=== PATIENT | male | born 1940 | race Caucasian/White ===

== ENCOUNTER 2019-04-15 13:51 | Inpatient (IN) | payer MEDICARE ==
[2019-04-15] MEDS ORDERED: 0.9 % SODIUM CHLORIDE 1000ML 1,000 ML IV ONE (14:21)
[2019-04-15 14:26] LABS: ABSOLUTE NEUTROPHIL COUNT 4.14; BASO % 0.6 % (0-6); EOS % 2.6 % (0-6); GRAN % 76.4 % (47-80); HEMATOCRIT 38.1 % (42.0-52.0); HEMOGLOBIN 11.8 gm/dl (14.0-18.0); LYMPH % 12.7 % (16-45); MEAN CELL VOLUME 94.3 fl (81-97); MEAN CORPUSCULAR HEMOGLOBIN 29.2 pg (27-33); MEAN PLATELET VOLUME 10.1 fl (7.4-10.4); MONO % 7.7 % (0-9); PLATELET COUNT 197 K/uL (130-400); RED BLOOD COUNT 4.04 M/uL (4.40-5.70); WHITE BLOOD COUNT W/O DIFF 5.4 K/uL (4.2-12.2)
--- NOTE | 2019-04-15 14:26 | Emergency Department Record ---
History of Present Illness - General Chief complaint: Swelling of legs Stated complaint: LEG SWELLING/UNEXPLAINED WEIGHT LOSS Time Seen by Provider: 04/15/19 13:54 Source: Patient, Family Mode of Arrival: Wheelchair Limitations: No limitations - History of Present Illness Initial comments: 78 yo male presents with his family. The patient and family report that the patient has not been seen by a doctor for nearly three years. The concerns include some general weakness, possible weight loss (not been weighed at home), leg swelling, leg redness bilaterally. He is currently not on any medications. He reports AMI with stent about 2012. No headaches. No confusion. No syncope. No cough. No chest pain. He states activity does make him short of breath gradually over a very long period. He states his appetite is good. No abdominal pain. No diarrhea. No dysuria. Last PCP was Dr Nguyen in [place]. The legs have been swollen for many weeks. MD Complaint: Extremity swelling (redness) Onset/Timin -: Year(s) Location: Bilateral, Lower Leg Radiation: Other Quality: Other Improves with: Nothing Worsens with: Nothing Associated Symptoms: Other - Related Data Home Medications Medication Instructions Recorded Confirmed Last Taken No Home Med [NO HOME MEDS] 04/15/19 04/15/19 Unknown Allergies Allergy/AdvReac Type Severity Reaction Status Date / Time No Known Drug Allergies Allergy Verified 04/15/19 16:49 Travel Screening - Travel/Exposure Within Last 30 Days Have you traveled within the last 30 days?: No - Travel/Exposure Within Last Year Have you traveled outside the [place] in the last year?: No - Additonal Travel Details Have you been exposed to anyone with a communicable illness?: No - Travel Symptoms Symptom Screening: None Review of Systems Constitutional: Reports: Malaise, Weakness. Denies: Chills, Fever Eyes: Denies: Eye discharge, Vision change ENT: Denies: Congestion, Throat pain Respiratory: Denies: Cough, Wheezes Cardiovascular: Reports: Edema. Denies: Chest pain, Palpitations, Syncope Endocrine: Reports: Fatigue. Denies: Polydipsia, Polyuria Gastrointestinal: Denies: Abdominal pain, Constipation, Diarrhea, Nausea, Vom iting Genitourinary: Denies: Dysuria, Frequency, Hematuria Musculoskeletal: Denies: Arthralgia, Back pain, Myalgia Skin: Reports: Other (leg erythema). Denies: Bruising, Change in color Neurological: Reports: Weakness. Denies: Confusion, Headache, Numbness, Tingling Psychiatric: Denies: Anxiety Hematological/Lymphatic: Denies: Easy bleeding, Easy bruising Past Medical History - SOCIAL HISTORY Smoking Status: Never smoker Alcohol Use: None Drug Use: None - RESPIRATORY Hx Respiratory Disorders: No - CARDIOVASCULAR Hx Cardio Disorders: Yes Hx Heart Attack: Yes (2016) - NEURO Hx Neuro Disorders: No - GI Hx GI Disorders: No - Hx Genitourinary Disorders: No - ENDOCRINE Hx Endocrine Disorders: No - MUSCULOSKELETAL Hx Musculoskeletal Disorders: Yes Hx Arthritis: Yes - PSYCH Hx Psych Problems: No - HEMATOLOGY/ONCOLOGY Hx Hematology/Oncology Disorders: No Family Medical History Any Significant Family History?: No Physical Exam - General General Appearance: Alert, Oriented x3, Cooperative, No acute distress Limitations: No limitations - Head Head exam: Atraumatic, Normocephalic, Normal inspection - Eye Eye exam: Normal appearance, PERRL. negative: Conjunctival injection, Periorbital swelling, Scleral icterus - ENT ENT exam: Normal exam, Mucous membranes moist, Normal orophraynx Ear exam: Normal external inspection Nasal Exam: Normal inspection Mouth exam: Normal external inspection - Neck Neck exam: Normal inspection, Full ROM. negative: Tenderness - Respiratory Respiratory exam: Normal lung sounds bilaterally. negative: Accessory muscle use, Chest wall tenderness, Decreased breath sounds, Prolonged expiratory, Respiratory distress, Rhonchi, Stridor, Wheezes - Cardiovascular Cardiovascular Exam: Regular rate, Normal rhythm, Normal heart sounds. negative: Diastolic murmur, Systolic murmur Peripheral Pulses: 2+: Radial (R), Radial (L) - GI/Abdominal GI/Abdominal exam: Soft. negative: Distended, Guarding, Tenderness - Rectal Rectal exam: Deferred - exam: Deferred - Extremities Extremities exam: Full ROM, Normal capillary refill, Pedal edema. negative: Normal inspection, Calf tenderness, Tenderness Image of Full Body: 1 - bilateral edema, with erythema 2 - pressure sore like raw supericial skin breakdown - Back Back exam: Denies: CVA tenderness (R), CVA tenderness (L) - Neurological Neurological exam: Alert, Oriented X3 - Psychiatric Psychiatric exam: Normal affect, Normal mood - Skin Skin exam: Erythema Course Vital Signs 04/15/19 13:57 Temperature 97.6 F Pulse Rate 89 Respiratory 20 Rate Blood Pressure 176/92 Pulse Ox 97 - Reevaluation(s) Reevaluation #1: 04/15/19 14:45 EKG #1: 12:25 Rate: 75 Rhythm: sinus [place]: normal Intervals: normal ST segments: nonspecific J pint elevation, no reciprocal changes or ST depression Prior: None 04/15/19 15:01 The labs results were reviewed There are no acute significant abnormalities of the CBC. Mild anemia of 11.1 There are no acute significant abnormalities of the CMP 04/15/19 17:08 The case was discussed with Sin Agudelo [employer] for admission for UTI, deconditioning, cellulitis with pressure sore. Social Work consulted, PT consulted Medical Decision Making - Lab Data Result diagrams: 04/15/19 14:22 04/15/19 14:22 Disposition Disposition: Admit Clinical Impression: Cellulitis Qualifiers: Site of cellulitis: extremity Site of cellulitis of extremity: lower extremity Laterality: unspecified laterality Qualified Code(s): L03.119 - Cellulitis of unspecified part of limb Urinary tract infection Qualifiers: Indwelling urinary catheter type: unspecified Encounter type: initial encounter Pressure sore Qualifiers: Pressure injury location: calf Pressure injury stage: unspecified pressure injury stage Laterality: right Qualified Code(s): L89.899 - Pressure ulcer of other site, unspecified stage Disposition: Still a Patient at [facility] Decision to Admit: Admit from ER Decision to Admit Date: 04/15/19 Decision to Admit Time: 15:01 Condition: (2) Stable Time of Disposition: 15:01 Quality - Quality Measures Quality Measures: N/A - Blood Pressure Screening Does Patient Have Any of the Following: Active Dx of HTN Blood Pressure Classification: Hypertensive Reading Systolic Measurement: 176 Diastolic Measurement: 92 Screening for High Blood Pressure: Patient Exclusion, Hx of HTN [[id number]] Pre-Hypertensive Follow-up Interventions: Referral to alternative/primary care provider.
[2019-04-15 14:39] LABS: BLOOD UREA NITROGEN 19 mg/dL (8-23); CREATININE 0.9 mg/dL (0.7-1.2); EST GLOMERULAR FILTRATION RATE > 60 mL/min; INR 1.1; PARTIAL THROMBOPLASTIN TIME 27.6 SECONDS (24.5-39.1); PROTHROMBIN TIME (PATIENT) 10.9 SECONDS (9.5-12.1)
[2019-04-15 14:40] LABS: TOTAL PROTEIN 6.7 g/dL (6.6-8.7)
[2019-04-15 14:42] LABS: GLUCOSE,RANDOM 109 mg/dL (74-109)
[2019-04-15 14:45] LABS: ALB/GLOB RATIO 1.1 (1.1-1.8); ALBUMIN 3.5 g/dL (4.0-5.0); ALKALINE PHOSPHATASE 90 U/L (40-129); ALT/SGPT 8 U/L (<41); AST/SGOT 15 U/L (10.0-50.0)
[2019-04-15 14:55] LABS: THYROID STIMULATING HORMONE 1.29 uIU/mL (0.270-4.20)
[2019-04-15] MEDS ORDERED: CLINDAMYCIN 600MG/50ML PREMIX 600 MG/50 ML BAG IVPB ONE (15:06)
[2019-04-15 15:19] LABS: URINE BILIRUBIN NEGATIVE (NEGATIVE); URINE BLOOD TRACE-I (NEGATIVE); URINE COLOR YELLOW; URINE GLUCOSE (UA) NEGATIVE (NEGATIVE); URINE KETONE NEGATIVE (NEGATIVE); URINE LEUKOCYTE ESTERASE LARGE (NEGATIVE); URINE NITRITE POSITIVE (NEGATIVE); URINE PROTEIN NEGATIVE (NEGATIVE); URINE UROBILINOGEN 0.2 E.U./dL (0.20 - 1.00)
[2019-04-15 15:20] LABS: URINE APPEARANCE CLOUDY
[2019-04-15 15:24] LABS: URINE EPITHELIAL CELLS 0 - 2 (FEW); URINE WBC 36 - 50 (0-2/hpf)
[2019-04-15 15:25] LABS: URINE BACTERIA 1+
[2019-04-15] MEDS ORDERED: SILVER SULFADIAZINE 25 GM CREAM TOP ONE (16:13)
[2019-04-15] MEDS ORDERED: ACETAMINOPHEN 325 MG TAB PO PRN (17:59)
[2019-04-15] MEDS ORDERED: CEFTRIAXONE 1GM/50ML BAG 1 GM/50 ML BAG IVPB SCH (18:00)
[2019-04-15] MEDS: CLINDAMYCIN 600MG/50ML PREMIX 600 MG/50 ML BAG IVPB SCH (18:10)
[2019-04-15] MEDS ORDERED: MORPHINE SULFATE 10MG/1ML **1ML VIAL IVP PRN (21:22)
[2019-04-15] MEDS ORDERED: METOPROLOL TART 5 MG/5 ML VIAL IV ONE (21:30)
[2019-04-15] MEDS ORDERED: HYDRALAZINE 20MG/ML VIAL IV PRN (21:31)
[2019-04-15] MEDS: ACETAMINOPHEN 500 MG TABLET PO SCH (23:44)
[2019-04-16] MEDS: KETOROLAC 30 MG/ML VIAL IVP PRN ×2 (00:48→17:21)
[2019-04-16] MEDS: CLINDAMYCIN 600MG/50ML PREMIX 600 MG/50 ML BAG IVPB SCH ×3 (00:59→18:23)
--- NOTE | 2019-04-16 07:19 | RADIOLOGY REPORT ---
EXAM: CHEST, TWO VIEWS HISTORY: SHORTNESS OF BREATH. TECHNIQUE: AP sitting and lateral views of the chest were obtained. Comparison: None. FINDINGS: Mild cardiomegaly. Thoracic dextroscoliosis. The lungs appear somewhat hyperinflated suggesting underlying COPD. No definite acute infiltrate is seen and no pleural effusion or pneumothorax evident. Probable nipple shadow overlying the left base on the AP view at the level of the anterior end of the left fifth rib. This could be confirmed with follow-up PA and bilateral oblique views with nipple markers applied if clinically desired. Degenerative arthritis both shoulders. IMPRESSION: 1. HYPERINFLATION CONSISTENT WITH COPD. 2. THORACIC DEXTROSCOLIOSIS AND DEGENERATIVE CHANGES IN THE SPINE. 3. PROBABLE NIPPLE SHADOW LEFT BASE. NO DEFINITE ACUTE INFILTRATE SEEN. 4. MILD CARDIOMEGALY. JOB NUMBER: [id number] [facility]
[2019-04-16] MEDS ORDERED: FUROSEMIDE 20 MG TABLET PO SCH (10:00)
[2019-04-16] MEDS: ACETAMINOPHEN 500 MG TABLET PO SCH ×3 (11:26→23:03)
--- NOTE | 2019-04-16 11:26 | History & Physical ---
History of Present Illness - Date of Service Date of Service for History & Physical: 04/16/19 - History of Present Illness Admitting Diagnosis: cellulitis, CHF, deconditioned History of Present Illness: Gaetano Castillo is a 78 y.o. M who was brought to the [facility] ED on 04/15/19 by his family d/t generalized weakness, questionable weight loss, leg swelling, leg redness bilaterally. Pt and family reported that he has not seen a PCP in approximately 3 years. Does report a hx of NE with stent placement in 2016 and "mini-strokes" where he states he was treated for both conditions at [facility]. Reports that he was prescribed medications after the heart attack but stopped taking them shortly thereafter because "just taking a couple aspirin was doing the trick". Reports that he isn't taking ASA any longer, or any other medications at this time. In the ED, he denied, headaches, confusion, syncope, cough, CP, abdominal pain, diarrhea or dysuria. Did admit to some increased SOB with activity that has worsened over time. He was noted to be A&Ox3 with no confusion. Last PCP was Dr. Nguyen in [place], who has now retired. ED Course -Vitals: T97.8, HR 103, BP 153/108, RR 16, SpO2 95% on RA -EKG: NSR with questionable RVH -WBC 5.4, Hgb 11.8, BNP 874, creatinine 0.9 -CXR: Hyperinflation, mild cardiomegaly -U/A: +Nitrites and Leuks, C&S pending After arrival to the inpatient unit, pt was noted to be quite unkempt and visibly dirty. He c/o pain 10/10 to legs and BP elevated to 214/108 with HR 141. Was given Morphine 2mg x 1 and Metoprolol 5mg IV x 1 with + effect in both pain and BP/HR control. At that time, scheduled Acetaminophen was ordered as was Toradol 15mg q. 12 hours PRN. This morning, staff reported that pt was confused, with concerns about family environment and living situation. 04/16/19 1030 Vitals: T 97.9, HR 73, BP 120/69, RR 18, SpO2 Pt lying in bed, with HOB elevated. Nurse at bedside. Alert and oriented to name, time, place and was able to report who the President was. He was able to recall the procedures and treatment for his NE in 2016. He reported that he lives at home with his daughter and (who is on hospice), however Case Management later discussed with his family that he lives in a home with 5 other people in addition to and daughter. He was grabbing and clothes periodicall y and said "I need to lay down" when he was already lying in bed. Was found to be tremorous, which pt reported was normal for him but that it seemed to be worse at the time. Was also noted to have bilateral masses in the groin area which appear to be inguinal hernias for which pt denied pain and s tated that they had been present for quite some time. Was also found to have mottled knees, that were warm to touch and mottled/cyanotic bilateral fingers that were cold to the touch with reports of numbness. Pt reported that these s/sx have been "coming and going" for nearly a year. Capillary refill quick, mold filler plastic dolls strength WNL, no sensory deficit. He denied having any CP or SOB. C/o right hip pain 02/10. Denied any trauma such as a fall. Travel Screening - Travel/Exposure Within Last 30 Days Have you traveled within the last 30 days?: No - Travel/Exposure Within Last Year Have you traveled outside the [place] in the last year?: No - Additonal Travel Details Have you been exposed to anyone with a communicable illness?: No - Travel Symptoms Symptom Screening: None Review of Systems Reviewed: No additional complaints except as noted below Constitutional: Reports: Malaise, Weakness, Weight change. Denies: Chills, Fever Eyes: Denies: Vision change ENT: Denies: Congestion, Throat pain Respiratory: Denies: Cough, Wheezes Cardiovascular: Reports: Dyspnea on exertion, Edema. Denies: Chest pain, Palpitations, Syncope Endocrine: Reports: Fatigue Gastrointestinal: Denies: Abdominal pain, Constipation, Diarrhea, Nausea, Vomiting Genitourinary: Denies: Dysuria, Frequency, Testicular pain Musculoskeletal: Reports: Arthralgia. Denies: Back pain, Myalgia Skin: Reports: Other (leg erythema). Denies: Bruising Neurological: Reports: Numbness (in fingers occasionally), Weakness. Denies: Confusion, Headache, Tingling Psychiatric: Denies: Anxiety Hematological/Lymphatic: Denies: Easy bleeding, Easy bruising Past Medical History - SOCIAL HISTORY Smoking Status: Never smoker Alcohol Use: None Drug Use: None - RESPIRATORY Hx Respiratory Disorders: No - CARDIOVASCULAR Hx Cardio Disorders: Yes Hx Heart Attack: Yes (2016) - NEURO Hx Neuro Disorders: No - GI Hx GI Disorders: No - Hx Genitourinary Disorders: No - ENDOCRINE Hx Endocrine Disorders: No - MUSCULOSKELETAL Hx Musculoskeletal Disorders: Yes Hx Arthritis: Yes - PSYCH Hx Psych Problems: No - HEMATOLOGY/ONCOLOGY Hx Hematology/Oncology Disorders: No Family Medical History Any Significant Family History?: No H&P Meds/Allergies - Allergies Allergies: Allergies Allergy/AdvReac Type Severity Reaction Status Date / Time No Known Drug Allergies Allergy Verified 04/15/19 16:49 - Home Medications Home Medications Medication Instructions Recorded Confirmed Last Taken No Home Med [NO HOME MEDS] 04/15/19 04/15/19 Unknown - Active Medications Active Medications: Current Medications Acetaminophen (Tylenol 500mg Tab) 1,000 mg PO TID [facility] Last Admin: 04/15/19 23:44 Dose: Not Given Documented by: Enoxaparin Sodium (Lovenox) 40 mg SC DAILY [facility] Furosemide (Lasix) 20 mg PO DAILY [facility] Hydralazine HCl (Apresoline) 5 mg IV Q2H PRN PRN Reason: BLOOD PRESSURE Clindamycin Phosphate (Cleocin 600 [id number]) 600 mg in 50 mls @ 100 mls/hr IVPB Q8H [facility] Last Infusion: 04/16/19 01:30 Dose: Infused Documented by: Ketorolac Tromethamine (Toradol) 15 mg IVP Q12H PRN PRN Reason: PAIN - MOD TO SEVERE (5-10) Last Admin: 04/16/19 00:48 Dose: 15 mg Documented by: Lisinopril (Zestril) 5 mg PO DAILY [facility] Morphine Sulfate (Morphine Sulfate) 2 mg IVP Q6H PRN PRN Reason: PAIN - SEVERE (8-10) Last Admin: 04/15/19 21:36 Dose: 2 mg Documented by: Physical Exam - Vital Signs Vital Signs: Vital Signs - Last 24 Hrs Temp Pulse Pulse Resp BP BP Pulse Ox 04/16/19 06:00 97.9 F 73 18 120/69 95 04/15/19 23:52 99.1 F 96 H 20 117/66 96 04/15/19 22:15 123 H 20 155/79 97 04/15/19 22:00 122 H 20 177/88 97 04/15/19 21:00 98.2 F 141 H 20 214/108 98 04/15/19 19:12 18 04/15/19 17:59 97.8 F 103 H 16 153/108 95 04/15/19 16:12 82 16 154/101 94 L 04/15/19 15:35 94 L 04/15/19 15:27 20 148/96 04/15/19 13:57 97.6 F 89 20 176/92 97 - General General Appearance: Alert, Oriented x3, Cooperative, No acute distress Limitations: No limitations, Other - Head Head exam: Atraumatic, Normocephalic, Normal inspection - Eye Eye exam: Normal appearance, PERRL. negative: Conjunctival injection, Periorbital swelling, Scleral icterus - ENT ENT exam: Normal exam, Mucous membranes moist, Normal orophraynx, Other (slight left sided facial droop) Ear exam: Normal external inspection Nasal Exam: Normal inspection Mouth exam: Normal external inspection - Neck Neck exam: Normal inspection, Full ROM. negative: Tenderness - Respiratory Respiratory exam: Normal lung sounds bilaterally. negative: Accessory muscle use, Chest wall tenderness, Decreased breath sounds, Prolonged expiratory, Respiratory distress, Rhonchi, Stridor, Wheezes - Cardiovascular Cardiovascular Exam: Regular rate, Normal rhythm, Normal heart sounds. negative: Diastolic murmur, Systolic murmur Peripheral Pulses: 2+: Radial (R), Radial (L) - GI/Abdominal GI/Abdominal exam: Soft, Hernia (bilateral inquinal ). negative: Distended, Guarding, Tenderness - Rectal Rectal exam: Deferred - exam: Deferred - Extremities Extremities exam: Full ROM, Normal capillary refill, Pedal edema, Other (cyanotic/mottled bilateral fingers). negative: Normal inspection, Calf tenderness, Tenderness - Back Back exam: Denies: CVA tenderness (R), CVA tenderness (L) - Neurological Neurological exam: Alert, Oriented X3 - Psychiatric Psychiatric exam: Normal affect, Normal mood - Skin Skin exam: Erythema (yellow, scaly areas with serosanquineous drainage to BLE) Results - Labs Result Diagrams: 04/16/19 13:08 04/16/19 13:08 Labs Last 24 Hours: Laboratory Results - last 24 hr 04/15/19 04/15/19 04/15/19 14:22 14:22 14:22 WBC 5.4 RBC 4.04 L Hgb 11.8 L Hct 38.1 L MCV 94.3 MCH 29.2 MCHC 31.0 L RDW 15.0 H Plt Count 197 MPV 10.1 Gran % 76.4 Lymphocytes % 12.7 L Monocytes % 7.7 Eosinophils % 2.6 Basophils % 0.6 Absolute Neutrophils 4.14 PT 10.9 INR 1.1 APTT 27.6 Sodium 140 Potassium 4.3 Chloride 104 Carbon Dioxide 26.0 Anion Gap 10.0 BUN 19 Creatinine 0.9 Estimated GFR > 60 Random Glucose 109 Calcium 8.7 L Total Bilirubin 0.20 AST 15 ALT 8 Alkaline Phosphatase 90 Troponin T < 0.010 NT-Pro-B Natriuret Pep 874.60 H Total Protein 6.7 Albumin 3.5 L Globulin 3.2 Albumin/Globulin Ratio 1.1 TSH 1.29 Urine Color Urine Appearance Urine pH Ur Specific [place] Urine Protein Urine Glucose (UA) Urine Ketones Urine Blood Urine Nitrite Urine Bilirubin Urine Urobilinogen Ur Leukocyte Esterase Urine RBC Urine WBC Ur Epithelial Cells Urine Bacteria 04/15/19 04/16/19 15:17 08:39 WBC RBC Hgb Hct MCV MCH MCHC RDW Plt Count MPV Gran % Lymphocytes % Monocytes % Eosinophils % Basophils % Absolute Neutrophils PT INR APTT Sodium Potassium Cancelled Chloride Carbon Dioxide Anion Gap BUN Creatinine Estimated GFR Random Glucose Calcium Total Bilirubin AST ALT Alkaline Phosphatase Troponin T NT-Pro-B Natriuret Pep Total Protein Albumin Globulin Albumin/Globulin Ratio TSH Urine Color Yellow Urine Appearance Cloudy Urine pH 6.0 Ur Specific [place] 1.025 Urine Protein Negative Urine Glucose (UA) Negative Urine Ketones Negative Urine Blood Trace-i Urine Nitrite Positive H Urine Bilirubin Negative Urine Urobilinogen 0.2 Ur Leukocyte Esterase Large H Urine RBC 3 - 6 Urine WBC 36 - 50 Ur Epithelial Cells 0 - 2 Urine Bacteria 1+ VTE H&P Assessment - Risk for VTE Risk for VTE: Yes Risk Level: High Risk Assessment Date: 04/16/19 Risk Assessment Time: 10:30 VTE Orders Placed or Will Be Placed: Yes Plan - Inpatient Certification Inpatient Certification: Admit to inpatient care: Based on my medical assessment, after consideration of patient's risk factors (age, co-morbidities and patient presenting symptoms and acuity), I expect that this patient will remain in the hospital greater than or equal to two midnights and that the services needed warrant inpatient care be cause: Patient Risk Factors: [Age, Co-morbities] Estimated length of stay: [48-72 hours] The patient may reasonably be expected to be discharged or transferred to a hospital within 96 hours after admission to [facility]. Services needed: [IV Therapy, PT/OT, Medical Management, Nursing Services] Post hospital care (if known): [SNF vs home with [facility]] I certify that my determination is in accordance with my understanding of Medicare requirements for reasonable and necessary inpatient services. 04/16/19 21:00 - Detailed Diagnosis and Plan (1) Urinary tract infection Current Visit: Yes Status: Acute Qualifiers: Indwelling urinary catheter type: unspecified Encounter type: initial encounter Base Code: N39.0 - URINARY TRACT INFECTION, SITE NOT SPECIFIED Comment: 04/16/19 -U/A: +Nitrites and +Leuks, C&S pending -Clindamycin 600mg IV q. 8 hours (also for cellulitis) -PVR 160s this a.m. -WBC 5.4 (2) Cellulitis Current Visit: Yes Status: Acute Qualifiers: Site of cellulitis: extremity Site of cellulitis of extremity: lower extremity Laterality: unspecified laterality Qualified Code(s): L03.119 - Ce llulitis of unspecified part of limb Base Code: L03.90 - CELLULITIS, UNSPECIFIED Comment: 04/16/19 -BLE erythema with yellow scaling and serosanguienous drainage -Questionable arterial insufficiency complicating? -Clindamycin 600mg IV q. 8 hours -Scheduled Tylenol 1000mg TID -Toradol 15mg IV q. 12 hours PRN -D/C Morphine d/t potential confusion after administration on 04/15/19 (3) Hypertension Current Visit: Yes Status: Acute Base Code: I10 - ESSENTIAL (PRIMARY) HYPERTENSION Comment: 04/16/19 -BP ranging from 120/69 to 214/108 -Significant cardiac hx -Echo results pending -Trial Lisinopril 5mg daily -Trial Norvasc 5mg daily (also for suspected Raynaud's) -Hydralazine 5mg IV q. 2 hours PRN for SBP >160 and/or DBP 100 -Lasix 20mg d/c'd as there was no clinical evidence for fluid overload (4) Cyanosis of fingertip Current Visit: Yes Status: Acute Base Code: R23.0 - CYANOSIS Comment: 04/16/19 -Cyanotic/Mottled fingertips to bilateral hands with pt reports of "coming and going for some time" -Questionable Raynauds vs. other vascular deficiency? -Trial CCB Norvasc 5mg q. day (also for HTN) (5) Low hemoglobin Current Visit: Yes Status: Acute Base Code: D64.9 - ANEMIA, UNSPECIFIED Comment: 04/16/19 -Hgb 11.8 -Ferritin, TIBC, total iron ordered (6) DVT prophylaxis Current Visit: Yes Status: Acute Base Code: Z29.9 - ENCOUNTER FOR PROPHYLACTIC MEASURES, UNSPECIFIED Comment: 04/16/19 -High risk d/t age and co-morbidities -Lovenox 40mg SQ daily (7) DNR (do not resuscitate) Current Visit: Yes Status: Acute Base Code: Z66 - DO NOT RESUSCITATE Comment: 04/16/19 -DNR form signed with pt and witness
[2019-04-16] MEDS: ENOXAPARIN 40 MG/0.4 ML SYR SC SCH (11:27)
[2019-04-16] MEDS: LISINOPRIL 5 MG TABLET PO SCH (11:28)
[2019-04-16] MEDS: AMLODIPINE BESYLATE 5MG TAB PO SCH (12:20)
--- NOTE | 2019-04-16 12:20 | Rehab Evaluation ---
Patient Information - Patient Information Diagnosis: Cellulitis, CHF, deconditioning Ordered Treatment: PT Evaluate and Treat Status: Initial Evaluation History: Detail (The patient presented in ED on 04/15/19 for complaints of increased general weakness,possible wt. loss and LE swelling and redness.) Past Medical/Surgical Hx: PAST MEDICAL/SURGICAL HISTORY Past Surgical History cardiac stent PMH - Respiratory Hx Respiratory Disorders No PMH - Cardiovascular Hx Cardiovascular Disorders Yes Hx Heart Attack Yes: 2015 PMH - Neuro Hx Neurological Disorders No PMH - GI Hx Gastrointestinal Disorders No PMH - Hx Genitourinary Disorders No PMH - Endocrine Hx Endocrine Disorders No PMH - Musculoskeletal Hx Musculoskeletal Disorders Yes Hx Arthritis Yes PMH - Psych Hx Psychiatric Problems No PMH - Hematology/Oncology Hx Hematology/Oncology No Disorders Premorbid Status: Detail (Per the patient's report he was ambulating without assistive device at home.) Social History: Detail Precautions: [place], [place], Other (contact) - Time With Patient Total Time Spent With Patient (Min): 30 Treatment Procedures: Detail (PT Evaluation moderate complexity due to evolving condition ie: decreasing body temperature.) Subjective Information - Subjective Information Per Patient (The patient had complaints of LE pain but did not rate his pain using 0-10 pain scale. The patient reported he was cold and began shivering long-term through evaluation.) Objective Data - Mental Status Patient Orientation: Oriented x3 (The patient knew his birthdate, age, current month and year and knew he was in the hospital.) - ROM Not within normal limits (The patient had moderate limitations with bilateral shoulder and abduction ( to aprox. 90 degrees), minimal limitation with R elbow extension aprox -10 degrees(due to old injury). The patient also has bilateral ankle limitations in ankle dorsiflexion (-5 degrees from neurtral). All other AROM is WFL.) - Strength/Tone Not within normal limits ( Bilateral UE strength: shoulder flexors and abductors 3+/5, elbow flexors 4-/5, elbow extensors 3+/5, grasp 3+/5, wrist musculature 3+ to 4-/5. LE bilateral strength: hip flexors 3/5, hip abductors and adductors 4- /5, knee flexors and extensors 4-/5, ankle musculature dorsiflexors 3+/5, plantar flexors 4-/5.) - Bed Mobility Needs Assist (The patient was able to acheive supine to sit with CG and minimal PA to scoot forward in a seated position.) - Transfers Needs Assist (The patient required Mod PA of 1 for sit to stand. The patient tended to push posteriorly but was able to weight shift forward when cued. The patient transfered from bed to chair using a walker with CG/minimal PA.) - Balance Balance Sitting: Good Balance Standing: Poor (The patient leaned posteriorly when standing.) - Gait Detail (The patient did not ambulate but did take 2 to 3 shuffling steps to chair from bed.) Therapy Assessment - Therapy Assessment Detail (The patient presents with bilateral UE and LE weakness and required assistance with bed mobility and transfers. The patient began shivering 1/[address] through evaluation session especially notable when patient was sitting in chair. Patient's hands were cold to touch. RN was contacted and chair alarm was placed in chair and patient was given a warm blanket. RN took vitals at that time. Feel the patient would benefit from PT to improve mobility and to increase LE and UE strength. Will monitor patients medical status and continue PT as tolerated.) Problem List - Problem List Physical Therapy Problem List: Detail (1) Decreased UE and LE strength 2) [place] ited UE and ankle AROM bilaterally 3) Assistance with bed mobility and transfers 4) Decreased standing balance 5)Limited ambulation due to decreased endurance) Goals - Goals Physical Therapy Goals: 1) Increase bilateral UE and LE strength to improve ability to complete transfer, bed mobility and ambulation. 2) The patient will be independent with bed mobility. 3) Supervision with all transfers. 4) The patient will ambulate with appropriate assistive device household distances with supervision for safety. 5) The patient will stand upright without leaning backwards when completing sit to and stand transfer. Prognosis - Prognosis Moderate Plan - Plan Physical Therapy Plan: PT daily M-F for gait training, transfer training, bed mobility, UE and LE strengthening exercises as tolerated.
[2019-04-16 13:21] LABS: ABSOLUTE NEUTROPHIL COUNT 11.42; BASO % 0.2 % (0-6); EOS % 0.1 % (0-6); HEMATOCRIT 36.4 % (42.0-52.0); HEMOGLOBIN 11.2 gm/dl (14.0-18.0); LYMPH % 1.1 % (16-45); MEAN CELL VOLUME 93.3 fl (81-97); MEAN CORPUSCULAR HEMOGLOBIN 28.7 pg (27-33); MEAN CORPUSCULAR HGB CONC 30.8 g/dl (32-36); MEAN PLATELET VOLUME 10.3 fl (7.4-10.4); MONO % 1.1 % (0-9); PLATELET COUNT 153 K/uL (130-400); WHITE BLOOD COUNT W/O DIFF 11.7 K/uL (4.2-12.2)
[2019-04-16 13:58] LABS: ALB/GLOB RATIO 0.9 (1.1-1.8); ALBUMIN 2.8 g/dL (4.0-5.0); ALKALINE PHOSPHATASE 77 U/L (40-129); ALT/SGPT 11 U/L (<41); AST/SGOT 39 U/L (10.0-50.0); BLOOD UREA NITROGEN 26 mg/dL (8-23); CREATININE 0.9 mg/dL (0.7-1.2); EST GLOMERULAR FILTRATION RATE > 60 mL/min; GLUCOSE,RANDOM 177 mg/dL (74-109); TOTAL PROTEIN 5.8 g/dL (6.6-8.7)
[2019-04-17] MEDS: CLINDAMYCIN 600MG/50ML PREMIX 600 MG/50 ML BAG IVPB SCH (02:32)
--- NOTE | 2019-04-17 10:02 | Physician Progress Note ---
Subjective - Date Date of Physician Progress Note: 04/17/19 - Subjective Subjective Comment: 04/17/19 1010: Lying in bed. Awake and Alert. Reports that he continues to have some pain in his LE, that is worse at night. Feels like his legs are "jumping" and spasming at night, which is not new. Staff report that he has been A&Ox3 with no periods of confusion noted. LE open areas appear to be r/t vascular disease as opposed to cellulitis. Right posterior leg measures 10cm x 0.2cm and is beefy red with serosanguienous drainage, no odor present. Left posterior leg open area measures 9cm x 4cm and is pink in color. Stopping Clindamycin and switching to Cipro for better UTI coverage. Pt continues to work with PT/OT. Location: Left, Right, Lower extremity Severity scale (1-10): 4 Consistency: Constant Improves with: Medication Objective - Multidiciplinary Team Multidiciplinary Team: Case Management, Nursing, OT, PT - Vital Signs Vital Signs: Vital Signs - Last 24 Hrs Temp Pulse Resp BP Pulse Ox 04/17/19 08:34 89 18 04/17/19 08:17 98 F 89 18 147/82 99 04/17/19 06:23 97.7 F 73 16 134/75 99 04/16/19 23:00 98.3 F 73 18 117/55 100 04/16/19 21:00 73 18 04/16/19 19:00 99.3 F 88 18 125/67 98 04/16/19 11:00 83 18 102/78 - General General Appearance: Alert, Oriented x3, Cooperative, No acute distress Limitations: No limitations, Other - Head Head exam: Atraumatic, Normocephalic, Normal inspection - Eye Eye exam: Normal appearance, PERRL. negative: Conjunctival injection, Periorbital swelling, Scleral icterus - ENT ENT exam: Normal exam, Mucous membranes moist, Normal orophraynx, Other (slight left sided facial droop) Ear exam: Normal external inspection Nasal Exam: Normal inspection Mouth exam: Normal external inspection - Neck Neck exam: Normal inspection, Full ROM. negative: Tenderness - Respiratory Respiratory exam: Normal lung sounds bilaterally. negative: Accessory muscle use, Chest wall tenderness, Decreased breath sounds, Prolonged expiratory, Respiratory distress, Rhonchi, Stridor, Wheezes - Cardiovascular Cardiovascular Exam: Regular rate, Normal rhythm, Normal heart sounds. ne gative: Diastolic murmur, Systolic murmur Peripheral Pulses: 2+: Radial (R), Radial (L) - GI/Abdominal GI/Abdominal exam: Soft, Hernia (bilateral inquinal ). negative: Distended, Guarding, Tenderness - Rectal Rectal exam: Deferred - exam: Deferred - Extremities Extremities exam: Full ROM, Normal capillary refill, Pedal edema, Other (Jer bilateral fingertips). negative: Normal inspection, Calf tenderness, Tenderness - Back Back exam: Denies: CVA tenderness (R), CVA tenderness (L) - Neurological Neurological exam: Alert, Oriented X3 - Psychiatric Psychiatric exam: Normal affect, Normal mood - Skin Skin exam: Erythema (yellow, scaly areas with serosanquineous drainage to BLE), Other (open areas to BLE, see HPI) Assessment and Plan - Assessment and Plan (1) Urinary tract infection Current Visit: Yes Status: Acute Qualifiers: Indwelling urinary catheter type: unspecified Encounter type: initial encounter Base Code: N39.0 - URINARY TRACT INFECTION, SITE NOT SPECIFIED Comment: 04/17/19 -U/A: +Nitrites and +Leuks -Culture: Pseudomonas -Stop Clindamycin -Start Ciprofloxacin 400mg IV q. 12 hours (2) Hypertension Current Visit: Yes Status: Acute Base Code: I10 - ESSENTIAL (PRIMARY) HYPERTENSION Comment: 04/16/19 -BP ranging from 120/69 to 214/108 -Significant cardiac hx -Echo results pending -Trial Lisinopril 5mg daily -Trial Norvasc 5mg daily (also for suspected Raynaud's) -Hydralazine 5mg IV q. 2 hours PRN for SBP >160 and/or DBP 100 -Lasix 20mg d/c'd as there was no clinical evidence for fluid overload (3) Cyanosis of fingertip Current Visit: Yes Status: Acute Base Code: R23.0 - CYANOSIS Comment: 04/17/19 -Improved to reddened/jer color to bilateral fingers -Reports of "coming and going for some time" -Questionable Raynauds vs. other vascular deficiency? -Continue CCB Norvasc 5mg q. day (also for HTN) (4) Ulcer of lower extremity Current Visit: Yes Status: Acute Base Code: L97.909 - NON-PRS CHRONIC ULC UNSP PRT OF UNSP LOW LEG W UNSP SEVERITY Comment: 04/17/19 -Right posterior lecm x 0.2cm beefy red open area -Left posterior lecm x 4cm pink area -Scaling to BLE -Likely r/t arterial insufficiency -Order ELENA -Keep heels floated when in bed -Apply silver sulfadiazene to open areas daily, apply adaptic, abd and kerlix -Apply Eucerin to scaly areas after gentle wash daily (5) Iron deficiency anemia Current Visit: Yes Status: Acute Base Code: D50.9 - IRON DEFICIENCY ANEMIA, UNSPECIFIED Comment: 04/17/19 -Hgb 11.2, Iron 13, % sat 6 -Venofer 300mg IV x 1 -CBC tomorrow (6) Restless legs Current Visit: Yes Status: Acute Base Code: G25.81 - RESTLESS LEGS SYNDROME Comment: 04/17/19 -C/o legs spasming and being restless at night -Trial Pramipexole 0.125mg q. HS -Continue Schedule Tylenol and PRN Toradol (7) DNR (do not resuscitate) Current Visit: Yes Status: Acute Base Code: Z66 - DO NOT RESUSCITATE Comment: 04/17/19 -DNR form signed with pt and witness (8) DVT prophylaxis Current Visit: Yes Status: Acute Base Code: Z29.9 - ENCOUNTER FOR PROPHYLACTIC MEASURES, UNSPECIFIED Comment: 04/17/19 -High risk d/t age and co-morbidities -Lovenox 40mg SQ daily Results - Labs Result Diagrams: 04/16/19 13:08 04/16/19 13:08 Labs Last 24 Hours: Laboratory Results - last 24 hr 04/16/19 04/16/19 04/16/19 13:08 13:08 13:08 WBC 11.7 Corrected WBC RBC 3.90 L Hgb 11.2 L Hct 36.4 L MCV 93.3 MCH 28.7 MCHC 30.8 L RDW 15.0 H Plt Count 153 MPV 10.3 Gran % Neutrophils % 93.0 H Band Neutrophils % 3.0 Lymphocytes % 1.1 L Monocytes % 1.1 Eosinophils % 0.1 Basophils % 0.2 Absolute Neutrophils 11.42 Lymphocytes 3.0 L Monocytes 0.0 Basophils 0.0 Metamyelocytes Myelocytes Promyelocytes Nucleated RBCs Differential Comment Hypersegmented Polys Plasma Cells Other Cell Type Toxic Granulation Dohle Bodies Emeli Rods Platelet Estimate RBC Morphology Polychromasia Hypochromasia Poikilocytosis Basophilic Stippling Anisocytosis Microcytosis Macrocytosis Spherocytes Sickle Cells Target Cells Tear Drop Cells Ovalocytes Stomatocytes Helmet Cells [place] Bodies [place] Rings Superior Cells Acanthocytes (Spur) Rouleaux Schistocytes Morphology Comment Eosinophil Count 1.0 Sodium 138 Potassium 4.6 H Chloride 106 Carbon Dioxide 22.0 Anion Gap 10.0 BUN 26 H Creatinine 0.9 Estimated GFR > 60 Random Glucose 177 H Lactic Acid Calcium 8.3 L Magnesium Iron TIBC % Saturation Ferritin Total Bilirubin 0.40 AST 39 ALT 11 Alkaline Phosphatase 77 NT-Pro-B Natriuret Pep 3828.00 H Total Protein 5.8 L Albumin 2.8 L Globulin 3.0 Albumin/Globulin Ratio 0.9 L 04/16/19 04/16/19 04/16/19 13:08 13:08 13:08 WBC Cancelled Corrected WBC Cancelled RBC Cancelled Hgb Cancelled Hct Cancelled MCV Cancelled MCH Cancelled MCHC Cancelled RDW Cancelled Plt Count Cancelled MPV Cancelled Gran % Cancelled Neutrophils % Cancelled Band Neutrophils % Cancelled Lymphocytes % Cancelled Monocytes % Cancelled Eosinophils % Cancelled Basophils % Cancelled Absolute Neutrophils Cancelled Lymphocytes Cancelled Monocytes Cancelled Basophils Cancelled Metamyelocytes Cancelled Myelocytes Cancelled Promyelocytes Cancelled Nucleated RBCs Cancelled Differential Comment Cancelled Hypersegmented Polys Cancelled Plasma Cells Cancelled Other Cell Type Cancelled Toxic Granulation Cancelled Dohle Bodies Cancelled Eemli Rods Cancelled Platelet Estimate Cancelled RBC Morphology Cancelled Polychromasia Cancelled Hypochromasia Cancelled Poikilocytosis Cancelled Basophilic Stippling Cancelled Anisocytosis Cancelled Microcytosis Cancelled Macrocytosis Cancelled Spherocytes Cancelled Sickle Cells Cancelled Target Cells Cancelled Tear Drop Cells Cancelled Ovalocytes Cancelled Stomatocytes Cancelled Helmet Cells Cancelled [place] Bodies Cancelled [place] Rings Cancelled Jeanne Cells Cancelled Acanthocytes (Spur) Cancelled Rouleaux Cancelled Schistocytes Cancelled Morphology Comment Cancelled Eosinophil Count Cancelled Sodium Potassium Chloride Carbon Dioxide Anion Gap BUN Creatinine Estimated GFR Random Glucose Lactic Acid 2.2 Calcium Magnesium 1.6 Iron 13 L TIBC 210 % Saturation 6 L Ferritin 157.0 Total Bilirubin AST ALT Alkaline Phosphatase NT-Pro-B Natriuret Pep Total Protein Albumin Globulin Albumin/Globulin Ratio DVT/PE Assessment - Risk for VTE Risk for VTE: No Risk Level: High Risk Assessment Date: 04/16/19 Risk Assessment Time: 10:30 VTE Orders Placed or Will Be Placed: Yes - Active Medicaitons Current Medications: Current Medications Acetaminophen (Tylenol 500mg Tab) 1,000 mg PO TID [facility] Last Admin: 04/16/19 23:03 Dose: 1,000 mg Documented by: Amlodipine Besylate (Norvasc) 5 mg PO DAILY [facility] Last Admin: 04/16/19 12:20 Dose: 5 mg Documented by: Enoxaparin Sodium (Lovenox) 40 mg SC DAILY [facility] Last Admin: 04/16/19 11:27 Dose: 40 mg Documented by: Hydralazine HCl (Apresoline) 5 mg IV Q2H PRN PRN Reason: BLOOD PRESSURE Ciprofloxacin Lactate (Cipro) 400 mg in 200 mls @ 200 mls/hr IVPB Q12H [facility] Stop: 04/22/19 10:01 Iron Sucrose 300 mg/ Sodium (Chloride) 265 mls @ 176.667 mls/hr IVPB NOW ONE Stop: 04/17/19 12:29 Ketorolac Tromethamine (Toradol) 15 mg IVP Q12H PRN PRN Reason: PAIN - MOD TO SEVERE (5-10) Last Admin: 04/16/19 17:21 Dose: 15 mg Documented by: Lisinopril (Zestril) 5 mg PO DAILY [facility] Last Admin: 04/16/19 11:28 Dose: 5 mg Documented by: Silver Sulfadiazine (Ssd) 25 gm TOP DAILY [facility] AMI Plan - Labs Result Diagrams: 04/16/19 13:08 04/16/19 13:08
[2019-04-17] MEDS ORDERED: ZINC OXIDE 28.35 GM TUBE TOP ONE (10:48)
[2019-04-17] MEDS ORDERED: ZINC OXIDE 28.35 GM TUBE TOP PRN (10:49)
[2019-04-17] MEDS: ENOXAPARIN 40 MG/0.4 ML SYR SC SCH (10:55)
[2019-04-17] MEDS: CIPROFLOXACIN LACTATE/D5W 400 MG/200 ML BAG IVPB SCH ×4 (10:55→22:00)
[2019-04-17] MEDS: ACETAMINOPHEN 500 MG TABLET PO SCH ×3 (10:55→21:58)
[2019-04-17] MEDS: AMLODIPINE BESYLATE 5MG TAB PO SCH (10:56)
[2019-04-17] MEDS: LISINOPRIL 5 MG TABLET PO SCH (10:56)
[2019-04-17] MEDS ORDERED: IRON SUCROSE COMPLEX IVPB ONE ×2 (11:00→13:00)
[2019-04-17] MEDS ORDERED: SODIUM CHLORIDE 0.9% IVPB ONE ×2 (11:00→13:00)
[2019-04-17] MEDS: SILVER SULFADIAZINE 25 GM CREAM TOP SCH (11:17)
--- NOTE | 2019-04-17 14:09 | Physical Therapy Tx Note ---
Physical Therapy Tx Note - Treatment Note Tolerated: Good Total Time Spent With Patient: 45 Physical Therapy Tx Note: Detail (Pt sleeping in bed upon arrival; awakened easily, cooperative for therapy. Reported B heel pain at rest, despite having them elevated from bed surface by pillows under lower legs. Required minimal assist for LE's and for scooting to edge of bed with bed mobility. Reported that R calf was particularly tender when resting on corner of mattress; nrsg informed. Sit/stand to front wheeled walker with CGA, ambulated to bathroom w/CGA w/VC's to pivot to commode. CGA to control descent to toilet. Assisted to change brief. Minimal assist to come to standing from toilet, ambulated to bedside chair w/VCs for technique and CGA. Good control of descent. Assisted pt w/changing gown, coming to stand at walker w/CGA for medication application to buttocks by nurse, and placement of chair alarm. Placed bedside table w/TV remote and call light in reach. Left up in chair w/nrsg present. Pt reported fatigue.) Physical Therapy Problem List: Detail (1) Decreased UE and LE strength 2) Limited UE and ankle AROM bilaterally 3) Assistance with bed mobility and transfers 4) Decreased standing balance 5)Limited ambulation due to decreased endurance) Physical Therapy Goals: 1) Increase bilateral UE and LE strength to improve ability to complete transfer, bed mobility and ambulation. 2) The patient will be independent with bed mobility. 3) Supervision with all transfers. 4) The patient will ambulate with appropriate assistive device household distances with supervision for safety. 5) The patient will stand upright without leaning backwards when completing sit to and stand transfer. Prognosis: Good Physical Therapy Plan: PT daily M-F for gait training, transfer training, bed mobility, UE and LE strengthening exercises as tolerated.
[2019-04-17] MEDS ORDERED: PRAMIPEXOLE DI-HCL 0.25 MG TABLET PO SCH (22:00)
[2019-04-18 07:00] LABS: ABSOLUTE NEUTROPHIL COUNT 4.94; HEMATOCRIT 37.7 % (42.0-52.0); HEMOGLOBIN 11.7 gm/dl (14.0-18.0); MEAN PLATELET VOLUME 10.8 fl (7.4-10.4); PLATELET COUNT 156 K/uL (130-400); RED BLOOD COUNT 4.01 M/uL (4.40-5.70); RED CELL DISTRIBUTION WIDTH 15.2 % (11.5-14.5); WHITE BLOOD COUNT W/O DIFF 6.1 K/uL (4.2-12.2)
[2019-04-18 07:19] LABS: BLOOD UREA NITROGEN 20 mg/dL (8-23); CREATININE 0.9 mg/dL (0.7-1.2); EST GLOMERULAR FILTRATION RATE > 60 mL/min; GLUCOSE,RANDOM 96 mg/dL (74-109)
[2019-04-18 07:22] LABS: MEAN CORPUSCULAR HEMOGLOBIN 29.1 pg (27-33)
[2019-04-18] MEDS ORDERED: IBUPROFEN 400 MG TABLET PO PRN (07:50)
--- NOTE | 2019-04-18 07:52 | Discharge Summary ---
Providers Discharge Summary Date: 04/18/19 Date of admission: 04/15/19 17:00 Attending physician: EMMANUEL BLUNT Primary care physician: Sin Agudelo N.P. Consults: Consult Orders 04/15/19 17:59 Consult - Case Management NOW Comment: Reason For Exam: concern with home environment safe for health cond Physical Exam - Vital Signs Vital Signs: Vital Signs - Last 24 Hrs Temp Pulse Resp BP Pulse Ox 04/18/19 05:00 97.6 F 74 16 163/86 99 04/17/19 21:00 97.9 F 75 18 132/69 99 04/17/19 16:00 98.4 F 78 16 116/73 98 04/17/19 08:34 89 18 04/17/19 08:17 98 F 89 18 147/82 99 - General General Appearance: Alert, Oriented x3, Cooperative, No acute distress Limitations: No limitations - Head Head exam: Atraumatic, Normocephalic, Normal inspection - Eye Eye exam: Normal appearance, PERRL. negative: Conjunctival injection, Periorbital swelling, Scleral icterus - ENT ENT exam: Normal exam, Mucous membranes moist, Normal orophraynx, Other (slight left sided facial droop) Ear exam: Normal external inspection Nasal Exam: Normal inspection Mouth exam: Normal external inspection - Neck Neck exam: Normal inspection, Full ROM. negative: Tenderness - Respiratory Respiratory exam: Normal lung sounds bilaterally. negative: Accessory muscle use, Chest wall tenderness, Decreased breath sounds, Prolonged expiratory, Respiratory distress, Rhonchi, Stridor, Wheezes - Cardiovascular Cardiovascular Exam: Regular rate, Normal rhythm, Normal heart sounds. negative: Diastolic murmur, Systolic murmur Peripheral Pulses: 2+: Radial (R), Radial (L) - GI/Abdominal GI/Abdominal exam: Soft, Hernia (bilateral inquinal ). negative: Distended, Guarding, Tenderness - Rectal Rectal exam: Deferred - exam: Deferred - Extremities Extremities exam: Full ROM, Normal capillary refill, Other (pink bilateral finger tips). negative: Normal inspection, Calf tenderness, Tenderness - Back Back exam: Denies: CVA tenderness (R), CVA tenderness (L) - Neurological Neurological exam: Alert, Oriented X3 - Psychiatric Psychiatric exam: Normal affect, Normal mood - Skin Skin exam: Erythema (yellow, scaly areas with serosanquineous drainage to BLE), Other (open areas to BLE, see HPI) Hospitalization - Hospitalization Admission Diagnosis: cellulitis, CHF, deconditioned - Problem List/Discharge Diagnosis (1) Urinary tract infection Status: Acute Discharge Diagnosis: Indwelling urinary catheter type: unspecified Encounter type: initial encounter Base Code: N39.0 - URINARY TRACT INFECTION, SITE NOT SPECIFIED Comment: 04/18/19 -U/A: +Nitrites and +Leuks -Culture: Pseudomonas, sensitivity still pending -Continue Ciprofloxacin but change from IV to PO 500mg q. 12 hours x 22 doses (2) Hypertension Status: Acute Base Code: I10 - ESSENTIAL (PRIMARY) HYPERTENSION Comment: 04/18/19 -BP 163/86 this a.m. -Significant cardiac hx per pt -Echo: EF 60-65% -Continue Lisinopril 5mg daily -Continue Norvasc 5mg daily (also for suspected Raynaud's) -Hydralazine 5mg IV q. 2 hours PRN for SBP >160 and/or DBP 100 (3) Cyanosis of fingertip Status: Acute Base Code: R23.0 - CYANOSIS Comment: 04/18/19 -Improved to pink finger tips, capillary refill quick -Questionable Raynauds vs. other vascular deficiency? -Continue CCB Norvasc 5mg q. day (also for HTN) (4) Ulcer of lower extremity Status: Acute Base Code: L97.909 - NON-PRS CHRONIC ULC UNSP PRT OF UNSP LOW LEG W UNSP SEVERITY Comment: 04/18/19 -Right posterior lecm x 0.2cm beefy red open area -Left posterior lecm x 4cm pink area -Scaling to BLE -Likely r/t arterial insufficiency -Order ELENA -Keep heels floated when in bed -Apply silver sulfadiazene to open areas daily, apply adaptic, abd and kerlix -Apply Moisturizing creme to scaly areas after gentle wash daily (5) Iron deficiency anemia Status: Acute Base Code: D50.9 - IRON DEFICIENCY ANEMIA, UNSPECIFIED Comment: 04/18/19 -Venofer infusion on 04/17/19 -Hgb: 11.8 --> 11.2 --> 11.7 -Start Ferrous Sulfate 325mg daily -Start Vitamin C daily -Monitor of GI upset and/or constipation d/t iron supplementation (6) Restless legs Status: Acute Base Code: G25.81 - RESTLESS LEGS SYNDROME Comment: 04/18/19 -C/o legs spasming and being restless at night -Trial Pramipexole 0.125mg q. HS, consider increase to 0.25 in 2-3 days -Continue Scheduled Tylenol 1000mg TID and Motrin PRN (7) DNR (do not resuscitate) Status: Acute Base Code: Z66 - DO NOT RESUSCITATE Comment: 04/18/19 -DNR form signed with pt and witness (8) DVT prophylaxis Status: Acute Base Code: Z29.9 - ENCOUNTER FOR PROPHYLACTIC MEASURES, UNSPECIFIED Comment: 04/18/19 -High risk d/t age and co-morbidities -Lovenox 40mg SQ daily - Hospitalization Course Disposition: Moved to Swing Bed Hospital Course: Gaetano Castillo is a 78 y.o. M who was brought to the [facility] ED on 04/15/19 by his family d/t generalized weakness, questionable weight loss, leg swelling, leg redness bilaterally. Pt and family reported that he has not seen a PCP in approximately 3 years. Does report a hx of IA with stent placement in 2016 and "mini-strokes" where he states he was treated for both conditions at [facility]. Reports that he was prescribed medications after the heart attack but stopped taking them shortly thereafter because "just taking a couple aspirin was doing the trick". Reports that he isn't taking ASA any longer, or any other medications at this time. In the ED, he denied, headaches, confusion, syncope, cough, CP, abdominal pain, diarrhea or dysuria. Did admit to some increased SOB with activity that has worsened over time. He was noted to be A&Ox3 with no confusion. Last PCP was Dr. Nguyen in [place], who has now retired. ED Course -Vitals: T97.8, HR 103, BP 153/108, RR 16, SpO2 95% on RA -EKG: NSR with questionable RVH -WBC 5.4, Hgb 11.8, BNP 874, creatinine 0.9 -CXR: Hyperinflation, mild cardiomegaly -U/A: +Nitrites and Leuks, C&S pending After arrival to the inpatient unit, pt was noted to be quite unkempt and visibly dirty. He c/o pain 10/10 to legs and BP elevated to 214/108 with HR 141. Was given Morphine 2mg x 1 and Metoprolol 5mg IV x 1 with + effect in both pain and BP/HR control. At that time, scheduled Acetaminophen was ordered as was Toradol 15mg q. 12 hours PRN. This morning, staff reported that pt was confused, with concerns about family environment and living situation. 04/16/19 1030 Vitals: T 97.9, HR 73, BP 120/69, RR 18, SpO2 Pt lying in bed, with HOB elevated. Nurse at bedside. Alert and oriented to nam e, time, place and was able to report who the President was. He was able to recall the procedures and treatment for his IA in 2016. He reported that he lives at home with his daughter and (who is on hospice), however Case Management later discussed with his family that he lives in a home with 5 other people in addition to and daughter. He was grabbing and clothes periodically and said "I need to lay down" when he was already lying in bed. Was found to be tremorous, which pt reported was normal for him but that it seemed to be worse at the time. Was also noted to have bilateral masses in the groin area which appear to be inguinal hernias for which pt denied pain and stated that they had been present for quite some time. Was also found to have mottled knees, that were warm to touch and mottled/cyanotic bilateral fingers that were cold to the touch with reports of numbness. Pt reported that these s/sx have been "coming and going" for nearly a year. Capillary refill quick, loading checker strength WNL, no sensory deficit. He denied having any CP or SOB. C/o right hip pain 6/10. Denied any trauma such as a fall. 04/17/19 1010: Lying in bed. Awake and Alert. Reports that he continues to have some pain in his LE, that is worse at night. Feels like his legs are "jumping" and spasming at night, which is not new. Staff report that he has been A&Ox3 with no periods of confusion noted. LE open areas appear to be r/t vascular disease as opposed to cellulitis. Right posterior leg measures 10cm x 0.2cm and is beefy red with serosanguienous drainage, no odor present. Left posterior leg open area measures 9cm x 4cm and is pink in color. Stopping Clindamycin and switching to Cipro for better UTI coverage. Pt continues to work with PT/OT. 04/18/19 1230 Sitting up in recliner chair. Eating lunch. A&Ox3. Reported that he did not notice a difference in leg pain and "jumping" last night after taking Pramipexole. Stated that he has problems with urine flow and often has to wait for the flow to start, which has been going on over the years. Reported some stinging to open areas on legs when "salve" applied but that it is tolerable and he would rather have the medication applied than have it stopped. Has been working with PT/OT. Procedures: Imaging and X-Rays 04/15/19 14:20 CHEST 2 VIEWS [RAD] Stat Cardiology Procedures 04/15/19 14:20 EKG ONCE 04/15/19 17:59 Harness Preparer .Continuous Echo W/CF & Cardiac Doppler NOW Abnormal Labs: Abnormal Lab Results 04/15/19 04/15/19 04/15/19 Range/Units 14:22 14:22 15:17 RBC 4.04 L (4.40-5.70) M/uL Hgb 11.8 L (14.0-18.0) gm/dl Hct 38.1 L (42.0-52.0) % MCHC 31.0 L (32-36) g/dl RDW 15.0 H (11.5-14.5) % MPV (7.4-10.4) fl Neutrophils % (47-80) % Lymphocytes % 12.7 L (16-45) % Lymphocytes (16-45) % Potassium (3.4-4.5) mmol/L Chloride (98-107) mmol/L BUN (8-23) mg/dL Random Glucose (74-109) mg/dL Calcium 8.7 L (8.8-10.2) mg/dL Iron (59-158) ug/dL % Saturation (20-50) % NT-Pro-B Natriuret Pep 874.60 H (<450) pg/mL Total Protein (6.6-8.7) g/dL Albumin 3.5 L (4.0-5.0) g/dL Albumin/Globulin Ratio (1.1-1.8) Urine Nitrite Positive H (NEGATIVE) Ur Leukocyte Esterase Large H (NEGATIVE) 04/16/19 04/16/19 04/16/19 Range/Units 13:08 13:08 13:08 RBC 3.90 L (4.40-5.70) M/uL Hgb 11.2 L (14.0-18.0) gm/dl Hct 36.4 L (42.0-52.0) % MCHC 30.8 L (32-36) g/dl RDW 15.0 H (11.5-14.5) % MPV (7.4-10.4) fl Neutrophils % 93.0 H (47-80) % Lymphocytes % 1.1 L (16-45) % Lymphocytes 3.0 L (16-45) % Potassium 4.6 H (3.4-4.5) mmol/L Chloride (98-107) mmol/L BUN 26 H (8-23) mg/dL Random Glucose 177 H (74-109) mg/dL Calcium 8.3 L (8.8-10.2) mg/dL Iron (59-158) ug/dL % Saturation (20-50) % NT-Pro-B Natriuret Pep 3828.00 H (<450) pg/mL Total Protein 5.8 L (6.6-8.7) g/dL Albumin 2.8 L (4.0-5.0) g/dL Albumin/Globulin Ratio 0.9 L (1.1-1.8) Urine Nitrite (NEGATIVE) Ur Leukocyte Esterase (NEGATIVE) 04/16/19 04/18/19 04/18/19 Range/Units 13:08 06:44 06:44 RBC 4.01 L (4.40-5.70) M/uL Hgb 11.7 L (14.0-18.0) gm/dl Hct 37.7 L (42.0-52.0) % MCHC 31.0 L (32-36) g/dl RDW 15.2 H (11.5-14.5) % MPV 10.8 H (7.4-10.4) fl Neutrophils % (47-80) % Lymphocytes % (16-45) % Lymphocytes (16-45) % Potassium (3.4-4.5) mmol/L Chloride 108 H (98-107) mmol/L BUN (8-23) mg/dL Random Glucose (74-109) mg/dL Calcium 8.3 L (8.8-10.2) mg/dL Iron 13 L (59-158) ug/dL % Saturation 6 L (20-50) % NT-Pro-B Natriuret Pep (<450) pg/mL Total Protein (6.6-8.7) g/dL Albumin (4.0-5.0) g/dL Albumin/Globulin Ratio (1.1-1.8) Urine Nitrite (NEGATIVE) Ur Leukocyte Esterase (NEGATIVE) Condition at Discharge: (2) Stable Discharge Medications - Discharge Medications Home Medications: Ambulatory Orders No Home Med [NO HOME MEDS] 04/15/19 [Last Taken Unknown] Discharge Plan - Discharge Instructions Diet at Discharge: Regular Diet Additional Instructions: New patient appointment with Sin Agudelo NP at [facility] May 01 at 9:20am. . Please complete and bring all new patient paperwork to appointment. Quality Measures - Quality Measures Quality Measures: Advance Directives, Documentation of Current Medications in Medical Record, Elder Maltreatment Screen and Follow-Up Plan, Screening for High Blood Pressure and F/U Documented - Current Medications Quality Measure: Measure #130: Documentation of Current Medications Documentation of Current Medications: <Current Medications Documented/Reviewed> [Z7567] - Blood Pressure Screening Quality Measure: Screening for High Blood Pressure and Follow-Up Documented Does Patient Have Any of the Following: Active Dx of HTN Blood Pressure Classification: Hypertensive Reading Systolic Measurement: 176 Diastolic Measurement: 92 Screening for High Blood Pressure: Patient Exclusion, Hx of HTN [G9744] - Advance Directives Quality Measure: Measure #47: Care Plan Advance Directives Established: No Advance Directives Information Provided To Patient: Declined Advance Directives on File: No Living Will: No Power of Dry Placer Machine Operator: No Advance Care Planning: <Care Plan/Decision Maker Documented; Discussed & Documented> [3485Q] - Elder Abuse Suspicion Index Screening: Elder Abuse Suspicion Index Screening Rely on people for bathing, dressing, shopping, banking, etc: No Prevented from getting food, clothes, medication, etc: No Made to feel shamed or threatened by someone: No Forced to sign papers or use money against will: No Feel afraid, touched in ways not wanted or hurt physically: No Poor eye contact, withdrawn, malnourished, cuts or bruises: Yes Screening Result: Positive result, One YES response in questions 2-6. EASI Reference Information: Erasmo MORFIN, Etelvina C, Pia Pena, Filipe Callejas.Development and validation of a tool to assist physicians identification of elder abuse: The Elder Abuse Suspicion Index (EASI ). Journal of Elder Abuse and Neglect, 2008; 20 (3): 276-300. - Elder Maltreatment Screen Quality Measures: Elder Maltreatment Screen and Follow-Up Plan Elder Maltreatment Screen: <Negative, No Follow-Up Plan Required> [G8734]
[2019-04-18] MEDS ORDERED: CALCIUM CARB/VITAMIN D 500MG/200IU PO SCH (10:00)
[2019-04-18] MEDS ORDERED: MAGNESIUM OXIDE 400 MG TABLET PO SCH (10:00)
[2019-04-18] MEDS ORDERED: [UNRECOGNIZED DRUG - OTHER] TOP PRN (10:17)
[2019-04-18] MEDS: ACETAMINOPHEN 500 MG TABLET PO SCH (10:56)
[2019-04-18] MEDS: ENOXAPARIN 40 MG/0.4 ML SYR SC SCH (10:56)
[2019-04-18] MEDS: AMLODIPINE BESYLATE 5MG TAB PO SCH (10:57)
[2019-04-18] MEDS: LISINOPRIL 5 MG TABLET PO SCH (10:58)
[2019-04-18] MEDS: SILVER SULFADIAZINE 25 GM CREAM TOP SCH (10:58)
[2019-04-18] MEDS: CIPROFLOXACIN LACTATE/D5W 400 MG/200 ML BAG IVPB SCH (13:10)
== END 2019-04-18 14:23 | disposition swing bed (61) ==
LOC: ER 13:51 → MEDSURG 17:00
PROVIDERS: ADMIT Internal Medicine; ATTEND Internal Medicine
DX: L97.909 Non-pressure chronic ulcer of unspecified part of unspecified lower leg with unspecified severity (principal); L89.899 Pressure ulcer of other site, unspecified stage; N39.0 Urinary tract infection, site not specified; G25.81 Restless legs syndrome; D50.9 Iron deficiency anemia, unspecified; I10 Essential (primary) hypertension; R53.1 Weakness; R23.0 Cyanosis; R63.4 Abnormal weight loss; I25.2 Old myocardial infarction; Z66 Do not resuscitate; Z95.5 Presence of coronary angioplasty implant and graft
CPT/HCPCS: 71046; 80048; 80053; 81001; 82728; 83550; 83605; 83735; 83880; 84443; 84484; 85025; 85027; 85610; 85730; 93005; 93010; 93306; 96365; 99223; 99233; 99239; 99285; J0696; J1650; J1885; J2270; J7030; J7050

== ENCOUNTER 2019-04-17 11:23 | Inpatient (IN) | payer MEDICARE ==
--- NOTE | 2019-04-18 14:31 | Rehab Evaluation ---
Patient Information - Patient Information Diagnosis: Cellulitis, CHF, deconditioning Ordered Treatment: PT Evaluate and Treat Status: Initial Evaluation Past Medical/Surgical Hx: PAST MEDICAL/SURGICAL HISTORY Past Surgical History cardiac stent PMH - Respiratory Hx Respiratory Disorders No PMH - Cardiovascular Hx Cardiovascular Disorders Yes Hx Heart Attack Yes: 2016 PMH - Neuro Hx Neurological Disorders No Hx Seizures No PMH - GI Hx Gastrointestinal Disorders No PMH - Hx Genitourinary Disorders No PMH - Endocrine Hx Endocrine Disorders No Hx Diabetes No PMH - Musculoskeletal Hx Musculoskeletal Disorders Yes Hx Arthritis Yes PMH - Psych Hx Psychiatric Problems No PMH - Hematology/Oncology Hx Hematology/Oncology No Disorders Premorbid Status: Detail (The patient reports he was ambulating without assistive device at home.) Social History: Detail (The patient lives with 7 family members including in a 2 story house with basement with pt. primarily living on the first floor. There are 2 steps at the enterance without a handrail. The bathroom is equipped with a tub and the patient stated he usually takes a sponge bath. The bathrooom also has a standard toilet. No grab bars are present in th bathroom. The patient states he does not has equipment but his has 2 walkers- one 4 wheeled walker and one with 2 wheels. His also has a wheelchair and standard cane.) Precautions: [place], Fall - Time With Patient Total Time Spent With Patient (Min): 30 Treatment Procedures: Detail (Initial Evaluation.) Subjective Information - Subjective Information Per Patient (The patient had complaints of LE pain especially when ambulating but did not use 0-10 pain scale.) Objective Data - Mental Status Patient Orientation: Oriented x3 - ROM Not within normal limits (The patient's bilateral AROM in ankle dorsiflexion was to neutral. All other AROM was WNL. Refer to OT note for objective information.) - Strength/Tone Not within normal limits (LE strength was as follows: hip flexors 3-/5, hip adductors,abductors 4-/5 and extensors 4-/5, knee flexors and extensors 4-/5, ankle musculature dorsiflexors 3+/5, plantar flexors 4-/5.) - Bed Mobility Needs Assist (The patient was independent with supine to sit with CG and minimal PA to scoot forward in a seated position.) - Transfers Needs Assist (The patient required mod/min PA of 1 with sit to stand transfer. The patient required verbal cues to reach back to surface with stand to sit but no physical assist.) - Balance Balance Sitting: Good Balance Standing: Fair (The patient leaned posteriorly with sit to stand but was able to shift weight forward when cued. The patient required support of walker to stand.) - Gait Detail (The patient ambulated with front wheeled walker a distance of 22 feet x 1 with CG for safety. The patient's gait pattern was characterized by short shuffling steps.) Therapy Assessment - Therapy Assessment Detail (The patient exhibits decreased LE strength, decreased standing balance and requires assist with bed mobility, ambulation and transfers. Feel the patient will benefit from PT to increase LE strength and improve balance and acheive independence with functional mobility.) Problem List - Problem List Physical Therapy Problem List: Detail (1)Decreased LE strength 2) Limited ankle AROM 3)Assistance with bed mobility ambulation and transfers 4) Decreased standing balance 5)Limited ambulation due to decreased endurance.) Goals - Goals Physical Therapy Goals: 1) Increase LE strength 1/3 muscle group to increase stability of gait. 2) Formally test balance using objective balance test. 3)The patient will be independent with bed mobility and transfers. 4) The patient will ambulate with appropriate assistive device household distances independently. 5) The patient will ambulate on stairs with supervision for sa campos. Prognosis - Prognosis Good Plan - Plan Physical Therapy Plan: PT 1-2 times a day M-F for gait training, transfer training, LE strengthening and balance exercises and bed mobility.
--- NOTE | 2019-04-18 15:35 | Rehab Evaluation ---
Patient Information - Patient Information Diagnosis: Cellulitis, CHF, deconditioning Ordered Treatment: OT Evaluate and Treat Status: Initial Evaluation Surgery: No Past Medical/Surgical Hx: PAST MEDICAL/SURGICAL HISTORY Past Surgical History cardiac stent PMH - Respiratory Hx Respiratory Disorders No PMH - Cardiovascular Hx Cardiovascular Disorders Yes Hx Heart Attack Yes: 2016 PMH - Neuro Hx Neurological Disorders No Hx Seizures No PMH - GI Hx Gastrointestinal Disorders No PMH - Hx Genitourinary Disorders No PMH - Endocrine Hx Endocrine Disorders No Hx Diabetes No PMH - Musculoskeletal Hx Musculoskeletal Disorders Yes Hx Arthritis Yes PMH - Psych Hx Psychiatric Problems No PMH - Hematology/Oncology Hx Hematology/Oncology No Disorders Premorbid Status: Detail (The patient reports he was ambulating without assistive device at home. 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 He does not have a shower (bathtub only) and usually "washes up" once and awhile at the sink.) Social History: Detail (The patient lives with 7 family members including in a 2 story house with basement with pt. primarily living on the first floor. There are 2 steps at the enterance without a handrail. The bathroom is equipped with a tub and the patient stated he usually takes a sponge bath. The bathrooom also has a standard toilet. No grab bars are present in th bathroom. The patient states he does not has equipment but his has 2 walkers- one 4 wheeled walker and one with 2 wheels. His also has a wheelchair and standard cane.) Precautions: [place], Fall - Time With Patient Total Time Spent With Patient (Min): 45 Treatment Procedures: Detail (OT eval low and ADL) Subjective Information - Subjective Information Per Patient (Patient's "foster brother since 9 years old" (Angel) and his (Ashlyn) were present during eval and able to provide further information.) Objective Data - Pain Pain Present: Yes Pain Intensity: 5 (BLE's) Pain Scale Used: Numeric (1 - 10) - Mental Status Patient Orientation: Oriented x3 - Visual Perception Deficit (Patient wears glasses but does not currently have them with him) - ROM Not within normal limits (Patient has bilateral shld flex to ~135 deg. and Abd to ~120 deg. 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 Patient unable to touch R shoulder when testing elbow flex due to the inability to fully supinate R forearm. WNL for L elbow, wrist and hand ROM. R wrist limited with flex but able to make full fist on this hand.) - Strength/Tone Not within normal limits (Patient grossly 3+/5 for bilateral shld MMT testing and grossly 4/5 for elbow and wrsit MMT bilateral.) - Coordination Appears within normal limits for therapeutic activities - Transfers Needs Assist (Patient CGA for sit <>stand t/f from chair level. However required Min A for sit<>stand off toilet and Min A for lowering onto toilet.) - Balance Balance Sitting: Good - Gait Detail (Patient ambulated with 2WW from bedside chair to bathroom and back to chair with CGA.) - ADL's/IADL's Detail (Patient able to doff right sock only but after attempted trial to don, instead asked for assistance. Dep. sock don. Patient completed toileting with min A to stand from toilet. Patient unable to reach far enough to clean buttocks after large bowel movement. After several attempts, patient stood holding 2WW while therapist completed toilet H. Patient able to let go of walker with nicholas hands to reach and pull breifs up over hips. Min A to untwist once up on hips.) Therapy Assessment - Therapy Assessment Detail (Patient presents with weakness of BUE's, decreased endurance for self care tasks, decreased ability to ambulate household distances safely, and decreased independence with self care tasks. Patient would benefit from further skilled OT to address these limitations.) Problem List - Problem List Physical Therapy Problem List: Detail (1)Decreased LE strength 2) Limited ankle AROM 3)Assistance with bed mobility ambulation and transfers 4) Decreased standing balance 5)Limited ambulation due to decreased endurance.) Occupational Therapy Problem List: Detail (1. Weakness BUE's 2. Decreased independence with ADLs 3. Decreased endurance to complete self care tasks safely 4. Decreased independence with functional mobility) Goals - Goals Physical Therapy Goals: 1) Increase LE strength 1/3 muscle group to increase stability of gait. 2) Formally test balance using objective balance test. 3)The patient will be independent with bed mobility and transfers. 4) The patient will ambulate with appropriate assistive device household distances independently. 5) The patient will ambulate on stairs with supervision for safety. Occupational Therapy Goals: 1. Patient to be indpendent with drsg using ADL equipment if needed. 2. Patient to show increased endurance to complete self care tasks safely. 3. Patient to be independent with sit<>stand t/fs from toilet level Prognosis - Prognosis Good Plan - Plan Physical Therapy Plan: PT 1-2 times a day M-F for gait training, transfer training, LE strengthening and balance exercises and bed mobility. Occupational Therapy Plan: OT to see patient 2-4x per week M-F to address independence with self care, weakness of BUE's, and decreased endurance to complete self care safely.
[2019-04-18] MEDS ORDERED: ZINC OXIDE 28.35 GM TUBE TOP PRN (15:36)
[2019-04-18] MEDS ORDERED: HYDRALAZINE 20MG/ML VIAL IV PRN (15:37)
[2019-04-18] MEDS ORDERED: IBUPROFEN 400 MG TABLET PO PRN (15:40)
[2019-04-18] MEDS ORDERED: [UNRECOGNIZED DRUG - OTHER] TOP PRN (15:44)
[2019-04-18] MEDS ORDERED: CIPROFLOXACIN LACTATE/D5W 400 MG/200 ML BAG IVPB SCH (15:45)
[2019-04-18] MEDS: ACETAMINOPHEN 500 MG TABLET PO SCH ×2 (17:48→21:52)
[2019-04-18] MEDS: CIPROFLOXACIN HCL 500 MG TABLET PO SCH (22:00)
[2019-04-18] MEDS: PRAMIPEXOLE DI-HCL 0.25 MG TABLET PO SCH (22:00)
[2019-04-19] MEDS: ENOXAPARIN 40 MG/0.4 ML SYR SQ SCH (09:50)
[2019-04-19] MEDS: ACETAMINOPHEN 500 MG TABLET PO SCH ×3 (09:50→21:25)
[2019-04-19] MEDS: AMLODIPINE BESYLATE 5MG TAB PO SCH (09:50)
[2019-04-19] MEDS: CIPROFLOXACIN HCL 500 MG TABLET PO SCH ×2 (09:50→21:25)
[2019-04-19] MEDS: LISINOPRIL 5 MG TABLET PO SCH (09:51)
[2019-04-19] MEDS: ASCORBIC ACID 500 MG TAB PO SCH (09:51)
[2019-04-19] MEDS: TAMSULOSIN HCL 0.4 MG CAP.ER.24H PO SCH (09:51)
[2019-04-19] MEDS: MAGNESIUM OXIDE 400 MG TABLET PO SCH (09:51)
[2019-04-19] MEDS: CALCIUM CARB/VITAMIN D 500MG/200IU PO SCH (09:51)
[2019-04-19] MEDS: FERROUS SULFATE 325 MG TAB PO SCH (09:51)
[2019-04-19] MEDS: SILVER SULFADIAZINE 25 GM CREAM TOP SCH (09:52)
--- NOTE | 2019-04-19 12:30 | History & Physical ---
History of Present Illness - Date Date of Service for History & Physical: 04/19/19 - History of Present Illness Admitting Diagnosis: Deconditioning and weakness d/t UTI History of Present Illness: Gaetano Castillo is a 78 y.o. M who admits to the Swing Bed program at [facility] for physical deconditioning and wound care services. He admitted to [facility] on 04/15/19 d/t UTI, possible cellulitis and generalized weakness. Complete PMHx unknown but he did report hx of CT with stent placement in 2016 and "mini- strokes". He had not been taking any medications for 3 years. He was started on IV antibiotics, wound care and PT/OT. Medications were initiated to manage various s/sx. He was given a Venofer injection d/t iron deficiency anemia. He was set up with a new PCP as he previous PCP had retired. 04/19/19 Pt sitting up in recliner chair, with legs dangling. He reports that his legs feel alot better when they are dangling. Was started on Pramipexole 2 days ago and reports that he did sleep better last night but was awakened by nursing staff for vital signs checks which affected sleep. He reports that his bowels are moving and pain is well controlled. C/o numbness in his thumbs but it improved with exercises. General - Customary Routine Typical Morning Leisure Routine: Makes his breakfast, go to [employer], [employer]. Typical Afternoon Leisure Routine: Makes his own lunch, reading. Typical Evening Leisure Routine: Dinner and time w/ family. - Cognitive Patterns Speech: Normal Thought Process: Intact Thought Content: Normal Orientation: Oriented x3, Person, Place, Time Brief Interview for Mental Status Score: 15 - Communication Preferred Language?: Cuban Transfer Pumper Required: No Level of Education: High School, Technical/Trade School Comprehension Ability: No Impairment Able to Read: Yes Able to Write: Yes Select best description of speech pattern: Clear Speech Ability to express ideas and wants: Understood Understanding verbal content: Usually Understands - Mood and Behavior Patterns Appearance: Well Groomed Mood: Normal Attitude: Cooperative Motor Activity: Calm Affect: Appropriate Hallucinations: Denies - Patient Health Questionnaire (PHQ-9) Little interest or pleasure in doing things frequency: Never or 1 day Feeling down, depressed, or hopeless frequency: Never or 1 day Trouble falling/staying asleep or sleeping to much frequency: Never or 1 day Feeling tired or having little energy frequency: Never or 1 day Poor appetite or overeating frequency: Never or 1 day Feeling bad about yourself frequency: Never or 1 day Trouble concentrating on things frequency: Never or 1 day Moving/Speaking slowly or fidgety/restless frequency: Never or 1 day Thoughts that you would be better off frequency: Never or 1 day - Psychosocial Well-Being Usual Living Arrangement: Spouse, Children Living Arrangement Comment: lives with and adult children in his home Relationship Status: Current and Past Employment History: Retired Employment History Comment: Pt worked for a [employer], 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 Clubs/Organizations Belongs To: [employer] Yazidism: Moravian Spiritual Needs: Nothing specific per pt. Scientology: [employer] in [place] Verbalizes Interest in Activities During Stay: Yes (Possibly) Specify Interests: Likes to read. 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 Daughter drives pt when n eeded.) Patients Leisure Activities Prior to Admission: Reading, spending time w/ family. Plans to Return to the Following Leisure Activities: Same as above. - Physical Functioning Activity Level: Up with assist x1 Turning: Self ad chelsie ROM Ability: Moves all extremities Assistive Devices: 2 Wheel Walker Ambulation Ability: Needs Assist Bed Mobility: Needs Assist Transfer Ability: Needs Assist Bathing Ability: Needs Assist Personal Hygiene: Needs Assist Dressing Ability: Needs Assist Eating (Feeding) Ability: Independent Toileting Ability: Needs Assist Administer Own Medication: Needs Assist - Continence Bowel Pattern: Normal for Patient Bladder Pattern: Frequency, Urgency - Dental Status Unable to examine: No Broken or loosely fitting full or partial dentures: No No natural teeth or tooth fragment(s) (edentulous): No Abnormal mouth tissue (ulcers, masses, oral lesions, etc.): No Obvious or likely cavity or broken natural teeth: No Inflamed or bleeding gums or loose natural teeth: No Mouth/facial pain, discomfort or difficulty chewing: No - Nutrition Screening Poor oral intake > 1 week: No Unplanned weight loss in specified time frame: No Nutrition Support via tube feedings or parenteral nutrition: No Pressure Ulcer: No Significantly underweight define as BMI <18.5 kg/m2: No Albumin <2.5mg/dL: No Persistent nausea/vomiting/diarrhea >3 days: No Difficulty chewing/swallowing/mouth sores: No Admitting Diagnosis: No Nutrition Risk Score: Low Risk Review of Systems Reviewed: No additional complaints except as noted below Constitutional: Denies: Fever, Malaise, Weakness Respiratory: Denies: Cough, Dyspnea Cardiovascular: Denies: Chest pain, Dyspnea on exertion Gastrointestinal: Denies: Abdominal pain, Constipation, Diarrhea, Nausea Genitourinary: Reports: Other (hesitancy) Skin: Reports: Change in color Neurological: Reports: Numbness (in thumbs, improves with movement) Past Medical History - SOCIAL HISTORY Smoking Status: Never smoker Alcohol Use: None - SURGICAL HISTORY Past Surgical History: cardiac stent - RESPIRATORY Hx Respiratory Disorders: No - CARDIOVASCULAR Hx Cardio Disorders: Yes Hx Heart Attack: Yes (2015) - NEURO Hx Neuro Disorders: No Hx Seizures: No - GI Hx GI Disorders: No - Hx Genitourinary Disorders: No - ENDOCRINE Hx Endocrine Disorders: No Hx Diabetes: No - MUSCULOSKELETAL Hx Musculoskeletal Disorders: Yes Hx Arthritis: Yes - PSYCH Hx Psych Problems: No - HEMATOLOGY/ONCOLOGY Hx Hematology/Oncology Disorders: No Family Medical History Any Significant Family History?: No Hx Depression: Father Hx Stroke: Mother H&P Meds/Allergies - Allergies Allergies: Allergies Allergy/AdvReac Type Severity Reaction Status Date / Time No Known Drug Allergies Allergy Verified 04/15/19 16:49 - Active Medications Active Medications: Current Medications Acetaminophen (Tylenol 500mg Tab) 1,000 mg PO TID [facility] Last Admin: 04/19/19 09:50 Dose: 1,000 mg Documented by: Amlodipine Besylate (Norvasc) 5 mg PO DAILY [facility] Last Admin: 04/19/19 09:50 Dose: 5 mg Documented by: Ascorbic Acid (Vitamin C) 1,000 mg PO DAILY [facility] Last Admin: 04/19/19 09:51 Dose: 1,000 mg Documented by: Calcium/Vitamin D (Calcium 500+D Tablet) 1 tab PO DAILY [facility] Last Admin: 04/19/19 09:51 Dose: 1 tab Documented by: Ciprofloxacin (Cipro) 500 mg PO BID [facility] Stop: 04/29/19 10:01 Last Admin: 08/17/19 09:50 Dose: 500 mg Documented by: Enoxaparin Sodium (Lovenox) 40 mg SQ DAILY [facility] Last Admin: 04/19/19 09:50 Dose: 40 mg Documented by: Ferrous Sulfate (Iron) 325 mg PO DAILY [facility] Last Admin: 04/19/19 09:51 Dose: 325 mg Documented by: Hydralazine HCl (Apresoline) 5 mg IV Q2H PRN PRN Reason: hypertension Ibuprofen (Motrin 400mg) 400 mg PO Q8H PRN PRN Reason: PAIN - MILD (1-4) Lisinopril (Zestril) 5 mg PO DAILY [facility] Last Admin: 04/19/19 09:51 Dose: 5 mg Documented by: Magnesium Oxide (Mag Ox) 400 mg PO DAILY [facility] Last Admin: 04/19/19 09:51 Dose: 400 mg Documented by: Patient Own Med: Gold Juarez Intense Moisture 1 each TOP BID PRN PRN Reason: FOR DRY SKIN AREAS Pramipexole Dihydrochloride (Pramipexole Dihydrochloride) 0.125 mg PO QHS [facility] Last Admin: 04/18/19 22:00 Dose: 0.125 mg Documented by: Silver Sulfadiazine (Ssd) 1 gm TOP DAILY [facility] Last Admin: 04/19/19 09:52 Dose: Not Given Documented by: Tamsulosin HCl (Flomax) 0.4 mg PO DAILY [facility] Last Admin: 04/19/19 09:51 Dose: 0.4 mg Documented by: Zinc Oxide (Desitin) 1 gm TOP ASDIR PRN PRN Reason: skin protectant Physical Exam - Vital Signs Vital Signs: Vital Signs - Last 24 Hrs Temp Pulse Resp BP Pulse Ox 04/19/19 08:00 97.5 F L 85 15 129/83 98 04/18/19 20:00 98.5 F 80 16 135/76 94 L - General General Appearance: Alert, Oriented x3, Cooperative, No acute distress - ENT ENT exam: Other (slight left sided facial droop) Nasal Exam: Normal inspection Mouth exam: Normal external inspection - Respiratory Respiratory exam: Normal lung sounds bilaterally. negative: Accessory muscle use - Cardiovascular Cardiovascular Exam: Regular rate, Normal rhythm - GI/Abdominal GI/Abdominal exam: Soft, Normal bowel sounds, Hernia - Extremities Extremities exam: Normal capillary refill, Tenderness - Neurological Neurological exam: Alert, Oriented X3 - Psychiatric Psychiatric exam: Normal affect, Normal mood - Skin Skin exam: Intact, Warm Discharge Potential - Discharge Needs Community Services Used Prior to Admission: None Patient Discharge Plan Description: Return Home Community Services Needed at Discharge: Oxygen Therapy, Physical Therapy Discharge Needs Comment: Pt may possibly benefit from [facility] services upon discharge depending on progress during stay and status at discharge home. Plan - Swing Bed Certification Initial Certification Due: 04/18/19 14 Day Re-Cert Due: 05/02/19 44 Day Re-Cert Due: 06/01/19 74 Day Re-Cert Due: 07/01/19 - Detailed Diagnosis and Plan (1) Physical deconditioning Current Visit: Yes Status: Acute Base Code: R53.81 - OTHER MALAISE Comment: 04/19/19 -Hospitalized at [facility] from 04/15/19 to 04/18/19 for UTI, BLE skin ulcers and generalized weakness -Continue PT/OT -At d/c, consider home with [facility] (2) Urinary tract infection Current Visit: Yes Status: Acute Qualifiers: Indwelling urinary catheter type: unspecified Encounter type: initial encounter Base Code: N39.0 - URINARY TRACT INFECTION, SITE NOT SPECIFIED Comment: 04/19/19 -U/A: +Nitrites and +Leuks -Culture: Pseudomonas, sensitivity still pending -Continue Ciprofloxacin 500mg PO BID, last dose 04/29/19 @ 1000 (3) Urinary hesitancy Current Visit: Yes Status: Acute Base Code: R39.11 - HESITANCY OF MICTURITION Comment: 04/19/19 -Trial Flomax 0.4mg daily (4) DVT prophylaxis Current Visit: Yes Status: Acute Base Code: Z29.9 - ENCOUNTER FOR PROPHYLACTIC MEASURES, UNSPECIFIED Comment: 04/19/19 -High risk d/t age and co-morbidities -Lovenox 40mg SQ daily until more frequent ambulation (5) Hypertension Current Visit: Yes Status: Acute Base Code: I10 - ESSENTIAL (PRIMARY) HYPERTENSION Comment: 04/19/19 -BP 129/83 this a.m. -Significant cardiac hx per pt -Echo: EF 60-65% -Continue Lisinopril 5mg daily -Continue Norvasc 5mg daily (also for suspected Raynaud's) (6) Iron deficiency anemia Current Visit: Yes Status: Acute Base Code: D50.9 - IRON DEFICIENCY ANEMIA, UNSPECIFIED Comment: 04/19/19 -Venofer infusion on 04/17/19 -Hgb: 11.8 --> 11.2 --> 11.7 -Ferrous Sulfate 325mg daily -Vitamin C 1000mg daily (may also help with wound healing) -Monitor of GI upset and/or constipation d/t iron supplementation (7) Restless legs Current Visit: Yes Status: Acute Base Code: G25.81 - RESTLESS LEGS SYNDROME Comment: 04/19/19 -Slight improvement last night -C/o legs spasming and being restless at night -Continue Pramipexole 0.125mg q. HS, consider increase to 0.25 in 2-3 days -Continue Scheduled Tylenol 1000mg TID and Motrin PRN -Decrease frequency of vital sign checking to daily to decrease sleep disruption at night. (8) Ulcer of lower extremity Current Visit: Yes Status: Acute Base Code: L97.909 - NON-PRS CHRONIC ULC UNSP PRT OF UNSP LOW LEG W UNSP SEVERITY Comment: 04/19/19 -Pain lessened when legs dangling -Right posterior lecm x 0.2cm beefy red open area -Left posterior lecm x 4cm pink area -Scaling to BLE -Likely r/t arterial insufficiency -Order ELENA -Keep heels floated when in bed -Apply silver sulfadiazene to open areas daily, apply adaptic, abd and kerlix -Apply Moisturizing creme to scaly areas after gentle wash daily -ELENA ordered -Could consider trial of Pletal 100mg PO BID (9) DNR (do not resuscitate) Current Visit: Yes Status: Acute Base Code: Z66 - DO NOT RESUSCITATE Comment: 04/19/19 -DNR form signed with pt and witness
[2019-04-19] MEDS: PRAMIPEXOLE DI-HCL 0.25 MG TABLET PO SCH (21:25)
[2019-04-20] MEDS: ENOXAPARIN 40 MG/0.4 ML SYR SQ SCH (09:33)
[2019-04-20] MEDS: AMLODIPINE BESYLATE 5MG TAB PO SCH (09:33)
[2019-04-20] MEDS: CIPROFLOXACIN HCL 500 MG TABLET PO SCH ×2 (09:33→21:49)
[2019-04-20] MEDS: ACETAMINOPHEN 500 MG TABLET PO SCH ×3 (09:33→21:48)
[2019-04-20] MEDS: FERROUS SULFATE 325 MG TAB PO SCH (09:33)
[2019-04-20] MEDS: MAGNESIUM OXIDE 400 MG TABLET PO SCH (09:33)
[2019-04-20] MEDS: TAMSULOSIN HCL 0.4 MG CAP.ER.24H PO SCH (09:33)
[2019-04-20] MEDS: LISINOPRIL 5 MG TABLET PO SCH (09:33)
[2019-04-20] MEDS: CALCIUM CARB/VITAMIN D 500MG/200IU PO SCH (09:34)
[2019-04-20] MEDS: ASCORBIC ACID 500 MG TAB PO SCH (09:34)
[2019-04-20] MEDS: SILVER SULFADIAZINE 25 GM CREAM TOP SCH (09:34)
[2019-04-20] MEDS: PRAMIPEXOLE DI-HCL 0.25 MG TABLET PO SCH (21:48)
[2019-04-21] MEDS: ENOXAPARIN 40 MG/0.4 ML SYR SQ SCH (09:49)
[2019-04-21] MEDS: CALCIUM CARB/VITAMIN D 500MG/200IU PO SCH (09:50)
[2019-04-21] MEDS: MAGNESIUM OXIDE 400 MG TABLET PO SCH (09:50)
[2019-04-21] MEDS: TAMSULOSIN HCL 0.4 MG CAP.ER.24H PO SCH (09:50)
[2019-04-21] MEDS: ASCORBIC ACID 500 MG TAB PO SCH (09:50)
[2019-04-21] MEDS: CIPROFLOXACIN HCL 500 MG TABLET PO SCH ×2 (09:50→21:18)
[2019-04-21] MEDS: AMLODIPINE BESYLATE 5MG TAB PO SCH (09:50)
[2019-04-21] MEDS: FERROUS SULFATE 325 MG TAB PO SCH (09:50)
[2019-04-21] MEDS: LISINOPRIL 10 MG TABLET PO SCH (09:50)
[2019-04-21] MEDS: ACETAMINOPHEN 500 MG TABLET PO SCH ×3 (09:50→21:17)
[2019-04-21] MEDS: SILVER SULFADIAZINE 25 GM CREAM TOP SCH (09:51)
--- NOTE | 2019-04-21 12:52 | Occupational Therapy Tx Note ---
Occupational Therapy Tx Note - Treatment Note Tolerated: Good Total Time Spent With Patient: 45 (2 ADL, 1 TE) Occupational Therapy Treatment Note: Detail (S: Pt supine in bed upon therapist arrival, agreeable to OT Tx and needing to use the bathroom. Supine to EOB with MOD assist with B legs. Sit to stand with verbal and tactile cues for body positioning for successful TF and MIN assist for TF to FWW. MIN progressing to CGA functional mobility EOB to std. toilet with MIN for controlled descent to toilet. Pt demos ability to wipe in seated position but requests therapist assist for thoroughness (not necessary, Pt clean). Pt doffs socks, briefs, and gown seated at BS with supervision and increased time. Pt stands with CGA and alternating uni support on walker to wash giorgi area, chest, and arms. Pt sits to don briefs with MIN assist - able to thread L leg with verbal instruction for technique - bending down to floor vs. bringing foot up d/t leg weakness. Pt dons B socks with supervision, increased time and verbal instruction. Setup assist to don gown and assist for gown closures. CGA BSC to bedside chair with FWW. OT demos and hand-over hand instructs Pt on UE exercises - punch ups and punch outs, as Pt demos difficulty understanding. 10 reps x2 B UEs. Pt verbalizes understanding to complete exercises ~3x/daily in bedroom, therapist writes them on his handout of exercises. A: Pt tolerates Tx fair-good, limited by general weakness and decreased functional endurance. Also with some cog. deficits. Will benefit from further IP OT to decrease caregiver burden and increase functional independence for return home.) Occupational Therapy Problem List: Detail (1. Weakness BUE's 2. Decreased independence with ADLs 3. Decreased endurance to complete self care tasks safely 4. Decreased independence with functional mobility) Occupational Therapy Goals: 1. Patient to be indpendent with drsg using ADL equipment if needed. 2. Patient to show increased endurance to complete self care tasks safely. 3. Patient to be independent with sit<>stand t/fs from toilet level Prognosis: Good Occupational Therapy Plan: OT to see patient 2-4x per week M-F to address independence with self care, weakness of BUE's, and decreased endurance to complete self care safely.
--- NOTE | 2019-04-21 14:38 | Physical Therapy Tx Note ---
Physical Therapy Tx Note - Treatment Note Tolerated: Fair Total Time Spent With Patient: 25 Physical Therapy Tx Note: Detail (The patient was up in chair and sleeping when PT arrived. The patient completed the following exercises: hip marching x 5 reps, LAQ, ankle pumps, hip abduction, hip adductor squeezes all x 7-10 reps. The patient ambulated 40 feet x 1 with CG of 1. The patient required maximal assist to lift LE's into bed with sit to supine. Patient required maximal assist of 2 to scoot up in bed with use of trapeze. (Patient's difficulty with bed mobility may have been due air mattress.) Patient was left with Nursing Staff.) Physical Therapy Problem List: Detail (1)Decreased LE strength 2) Limited ankle AROM 3)Assistance with bed mobility ambulation and transfers 4) Decreased standing balance 5)Limited ambulation due to decreased endurance.) Physical Therapy Goals: 1) Increase LE strength 1/3 muscle group to increase stability of gait. 2) Formally test balance using objective balance test. 3)The patient will be independent with bed mobility and transfers. 4) The patient will ambulate with appropriate assistive device household distances independently. 5) The patient will ambulate on stairs with supervision for safety. Physical Therapy Plan: PT 1-2 times a day M-F for gait training, transfer training, LE strengthening and balance exercises and bed mobility.
[2019-04-21] MEDS: PRAMIPEXOLE DI-HCL 0.25 MG TABLET PO SCH (21:18)
[2019-04-22] MEDS: ASCORBIC ACID 500 MG TAB PO SCH (10:59)
[2019-04-22] MEDS: MAGNESIUM OXIDE 400 MG TABLET PO SCH (10:59)
[2019-04-22] MEDS: ACETAMINOPHEN 500 MG TABLET PO SCH ×3 (10:59→21:14)
[2019-04-22] MEDS: TAMSULOSIN HCL 0.4 MG CAP.ER.24H PO SCH (11:00)
[2019-04-22] MEDS: LISINOPRIL 10 MG TABLET PO SCH (11:00)
[2019-04-22] MEDS: AMLODIPINE BESYLATE 5MG TAB PO SCH (11:00)
[2019-04-22] MEDS: CALCIUM CARB/VITAMIN D 500MG/200IU PO SCH (11:00)
[2019-04-22] MEDS: SILVER SULFADIAZINE 25 GM CREAM TOP SCH (11:00)
[2019-04-22] MEDS: ENOXAPARIN 40 MG/0.4 ML SYR SQ SCH (11:00)
[2019-04-22] MEDS: CIPROFLOXACIN HCL 500 MG TABLET PO SCH ×2 (11:00→21:15)
[2019-04-22] MEDS: FERROUS SULFATE 325 MG TAB PO SCH (11:00)
--- NOTE | 2019-04-22 11:20 | Occupational Therapy Tx Note ---
Occupational Therapy Tx Note - Treatment Note Tolerated: Good, Fair Total Time Spent With Patient: 56 (4 ADL) Occupational Therapy Treatment Note: Detail (S: Pt supine in bed upon therapist arrival, agreeable to OT Tx, ok to see per MATTHEW Benitez who reports she will change B leg dressings after shower. O: Pt demos increased independence with bed mobility, supine to EOB with MIN assist. Sit to stand with MIN assist and therapist blocking toes to avoid Pt's feet sliding forward. Functional mobility EOB to standard toilet with MIN assist and FWW, shuffled gait and increased time, good safety awareness with controlled descent, CGA for standing pant mgmt, Pt able to wipe independently. Pt doffs gown and socks with supervision - verbal instruction for technique to doff socks reaching to floor level, increased time. Pt showers in seated position with MOD assist grossly, assist to wash below knees, buttocks with assist for standing at grab bar, giorgi area for thoroughness, and hair d/t increasing fatigue throughout shower. Therapist assist for drying all body parts and donning all clothing d/t Pt fatigue and time, as Pt completes all tasks very slowly and cautiously. Therapist assist for WC mobility to/from other bathroom to complete showering in walk-in shower. A: Pt limited by decreased strength and functional endurance grossly, will benefit from further IP OT to increase independence grossly, as Pt currently at risk for increased caregiver burden and falls.) Occupational Therapy Problem List: Detail (1. Weakness BUE's 2. Decreased independence with ADLs 3. Decreased endurance to complete self care tasks safely 4. Decreased independence with functional mobility) Occupational Therapy Goals: 1. Patient to be indpendent with drsg using ADL equipment if needed. 2. Patient to show increased endurance to complete self care tasks safely. 3. Patient to be independent with sit<>stand t/fs from toilet level Prognosis: Good Occupational Therapy Plan: OT to see patient 2-4x per week M-F to address independence with self care, weakness of BUE's, and decreased endurance to complete self care safely.
--- NOTE | 2019-04-22 14:35 | Physical Therapy Tx Note ---
Physical Therapy Tx Note - Treatment Note Tolerated: Good Total Time Spent With Patient: 30 Physical Therapy Tx Note: Detail (The patient was up in chair and finishing lunch when PT arrived. The patient required moderate PA with sit to stand and verbal cues to shift weight forward. The patient ambulated with front wheeled walker 52 feet x 1 with CG for safety. Patient was able to partially stand tall and take bigger steps when cued. The patient was independent with stand to sit transfer. The patient completed the following LE exercises seated: LAQ, heel/toe raises, hip marching, hip abduction, hip adductor squeezes all x 10 reps. The patient ambulated a further distance without fatigue and completed 10 rep of all exercises today.) Physical Therapy Problem List: Detail (1)Decreased LE strength 2) Limited ankle AROM 3)Assistance with bed mobility ambulation and transfers 4) Decreased standing balance 5)Limited ambulation due to decreased endurance.) Physical Therapy Goals: 1) Increase LE strength 1/3 muscle group to increase stability of gait. 2) Formally test balance using objective balance test. 3)The patient will be independent with bed mobility and transfers. 4) The patient will ambulate with appropriate assistive device household distances independently. 5) The patient will ambulate on stairs with supervision for safety. Physical Therapy Plan: PT 1-2 times a day M-F for gait training, transfer training, LE strengthening and balance exercises and bed mobility.
[2019-04-22] MEDS: PRAMIPEXOLE DI-HCL 0.25 MG TABLET PO SCH (21:15)
[2019-04-23] MEDS: FERROUS SULFATE 325 MG TAB PO SCH (10:57)
[2019-04-23] MEDS: MAGNESIUM OXIDE 400 MG TABLET PO SCH (10:57)
[2019-04-23] MEDS: CALCIUM CARB/VITAMIN D 500MG/200IU PO SCH (10:57)
[2019-04-23] MEDS: ASCORBIC ACID 500 MG TAB PO SCH (10:57)
[2019-04-23] MEDS: CIPROFLOXACIN HCL 500 MG TABLET PO SCH ×2 (10:58→21:30)
[2019-04-23] MEDS: ACETAMINOPHEN 500 MG TABLET PO SCH ×4 (10:58→21:29)
[2019-04-23] MEDS: LISINOPRIL 10 MG TABLET PO SCH (10:58)
[2019-04-23] MEDS: ENOXAPARIN 40 MG/0.4 ML SYR SQ SCH (10:58)
[2019-04-23] MEDS: SILVER SULFADIAZINE 25 GM CREAM TOP SCH (10:58)
[2019-04-23] MEDS: TAMSULOSIN HCL 0.4 MG CAP.ER.24H PO SCH (10:58)
[2019-04-23] MEDS: AMLODIPINE BESYLATE 5MG TAB PO SCH (10:58)
--- NOTE | 2019-04-23 11:04 | Occupational Therapy Tx Note ---
Occupational Therapy Tx Note - Treatment Note Tolerated: Good Total Time Spent With Patient: 46 (2 TE, 1 SC) Occupational Therapy Treatment Note: Detail (S: Pt upright in bedside chair upon therapist arrival, agreeable to OT Tx. O: Therapist engages Pt in UB strengthening at bedside chair for increased independence with self-cares and functional TFs. OT instructing Pt on proper technique and posture for AROM exercises to isolate specific muscles and decrease risk for injury. 1 min x2 reps: punch ups, punch outs, arm chair pushups, arm circles FW and BW. MIN assist for arm chair pushups to stabilize chair and to block Pt's toes as Pt extends legs frequently prior to standing. MIN assist for sit to/from stand to FWW and CGA for functional mobility to [facility] over toilet. Pt stands with CGA for standing pant mgmt and wiping. Gown change with MIN assist to thread arms and for gown closures. Standing without support at sink-side for hand washing CGA. Verbal and tactile cueing for placement of walker at sink, as Pt abandons walker. MOD for EOB to supine to elevate legs. A: Pt tolerated session well, limited by general weakness, however is making functional progress, notable increased steadiness during standing tasks. Will benefit from continued IP OT for improved strength and functional endurance to increased independence and safety with ADLs and functional TFs.) Occupational Therapy Problem List: Detail (1. Weakness BUE's 2. Decreased independence with ADLs 3. Decreased endurance to complete self care tasks safely 4. Decreased independence with functional mobility) Occupational Therapy Goals: 1. Patient to be independent with drsg using ADL equipment if needed. 2. Patient to show increased endurance to complete self care tasks safely. 3. Patient to be independent with sit<>stand t/fs from toil et level. 4. Patient will increase UB strength needed for ADLs and functional TFs Occupational Therapy Plan: OT to see patient 2-4x per week M-F to address independence with self care, weakness of BUE's, and decreased endurance to complete self care safely.
--- NOTE | 2019-04-23 17:02 | Physical Therapy Tx Note ---
Physical Therapy Tx Note - Treatment Note Tolerated: Good Total Time Spent With Patient: 30 Physical Therapy Tx Note: Detail (Patient was in bed this pm when PT arrived. The patient was independent with supine to sit with head of bed raised. The patient was minimal PA with sit to stand from bed and ambulated 7 feet to the bathroom with front wheeled walker with CG of 1 for safety. The patient was independent with handling pants and bathroom hygiene. The patient was able to acheive sit to stand independently from toilet with use of grab bar and elevated toilet seat. The patient ambulated 52 feet with front wheeled walker with CG of 1. The patient completed the following LE exercises: heel raises/toe raises, LAQ, hip marching, hip abduction with resistance and hip adductor squeezes. The patient was independent with sit to and from stand from the recliner. The p atient was left in chair with tray in place and chair alarm set.) Physical Therapy Problem List: Detail (1)Decreased LE strength 2) Limited ankle AROM 3)Assistance with bed mobility ambulation and transfers 4) Decreased standing balance 5)Limited ambulation due to decreased endurance.) Physical Therapy Goals: 1) Increase LE strength 1/3 muscle group to increase stability of gait. 2) Formally test balance using objective balance test. 3)The patient will be independent with bed mobility and transfers. 4) The patient will ambulate with appropriate assistive device household distances independently. 5) The patient will ambulate on stairs with supervision for safety. Physical Therapy Plan: PT 1-2 times a day M-F for gait training, transfer training, LE strengthening and balance exercises and bed mobility.
[2019-04-23] MEDS: PRAMIPEXOLE DI-HCL 0.25 MG TABLET PO SCH (21:30)
[2019-04-24] MEDS: AMLODIPINE BESYLATE 5MG TAB PO SCH (10:07)
[2019-04-24] MEDS: ASCORBIC ACID 500 MG TAB PO SCH (10:07)
[2019-04-24] MEDS: ENOXAPARIN 40 MG/0.4 ML SYR SQ SCH (10:07)
[2019-04-24] MEDS: MAGNESIUM OXIDE 400 MG TABLET PO SCH (10:07)
[2019-04-24] MEDS: CIPROFLOXACIN HCL 500 MG TABLET PO SCH ×2 (10:08→22:21)
[2019-04-24] MEDS: CALCIUM CARB/VITAMIN D 500MG/200IU PO SCH (10:08)
[2019-04-24] MEDS: TAMSULOSIN HCL 0.4 MG CAP.ER.24H PO SCH (10:08)
[2019-04-24] MEDS: FERROUS SULFATE 325 MG TAB PO SCH (10:08)
[2019-04-24] MEDS: ACETAMINOPHEN 500 MG TABLET PO SCH ×3 (10:08→22:20)
[2019-04-24] MEDS: LISINOPRIL 10 MG TABLET PO SCH (10:08)
[2019-04-24] MEDS: SILVER SULFADIAZINE 25 GM CREAM TOP SCH (10:49)
--- NOTE | 2019-04-24 11:13 | Physical Therapy Tx Note ---
Physical Therapy Tx Note - Treatment Note Tolerated: Good Total Time Spent With Patient: 25 Physical Therapy Tx Note: Detail (Patient was reclined in bed upon TANNING WHEEL FILLER arrival. Patient states he would like to get cleaned up. Patient transferred supine to sit independently. Patient transferred sit to and from stand CGA x1. Patient ambulated 13 feet with wheeled walker CGA x1. Patient was left with nursing to get cleaned up. Upon checking back in, patient was reclined in chair. Patient agreeable to ambulation and exercises. Patient transferred sit to and from stand CGA x1. Patient ambulated 40 feet with wheeled walker CGA x1. Patient performed the following exercises seated in chair x10 reps each: ankle pumps, marching, and LAQ. Patient tolerated treatment well. Patient required seated rest break after ambulation and with exercises. Patient reports feeling tired after treatment. Patient was left reclined in chair with call light within reach.) Physical Therapy Problem List: Detail (1)Decreased LE strength 2) Limited ankle AROM 3)Assistance with bed mobility ambulation and transfers 4) Decreased standing balance 5)Limited ambulation due to decreased endurance.) Physical Therapy Goals: 1) Increase LE strength 1/3 muscle group to increase stability of gait. 2) Formally test balance using objective balance test. 3)The patient will be independent with bed mobility and transfers. 4) The patient will ambulate with appropriate assistive device household distances independently. 5) The patient will ambulate on stairs with supervision for safety. Prognosis: Good Physical Therapy Plan: PT 1-2 times a day M-F for gait training, transfer training, LE strengthening and balance exercises and bed mobility.
--- NOTE | 2019-04-24 13:55 | Physical Therapy Tx Note ---
Physical Therapy Tx Note - Treatment Note Tolerated: Good Total Time Spent With Patient: 35 Physical Therapy Tx Note: Detail (Patient was reclined in chair upon HIGHWAY CONSTRUCTION INSPECTOR arrival. Patient states his legs are a little sore this afternoon. Patient transferred sit to and from stand CGA x1. Patient ambulated 50 feet with wheeled walker CGA x1. Patient performed the following exercises seated in chair x5-10 reps each: toe raises, heel raises, marching, hip abduction with ye llow theraband, isometric hip adduction, and sit to and from stand x5. Patient tolerated treatment well. Patient displays decreased strength and endurance with ambulation, seated marching, seated hip abduction with theraband, and sit to and from stand exercise. Patient reports feeling tired after treatment. Patient was left reclined in chair with call light within reach.) Physical Therapy Problem List: Detail (1)Decreased LE strength 2) Limited ankle AROM 3)Assistance with bed mobility ambulation and transfers 4) Decreased standing balance 5)Limited ambulation due to decreased endurance.) Physical Therapy Goals: 1) Increase LE strength 1/3 muscle group to increase stability of gait. 2) Formally test balance using objective balance test. 3)The patient will be independent with bed mobility and transfers. 4) The patient will ambulate with appropriate assistive device household distances independently. 5) The patient will ambulate on stairs with supervision for safety. Prognosis: Good Physical Therapy Plan: PT 1-2 times a day M-F for gait training, transfer training, LE strengthening and balance exercises and bed mobility.
[2019-04-24] MEDS: PRAMIPEXOLE DI-HCL 0.25 MG TABLET PO SCH (22:21)
[2019-04-25] MEDS: ENOXAPARIN 40 MG/0.4 ML SYR SQ SCH (09:08)
[2019-04-25] MEDS: FERROUS SULFATE 325 MG TAB PO SCH (09:08)
[2019-04-25] MEDS: CALCIUM CARB/VITAMIN D 500MG/200IU PO SCH (09:08)
[2019-04-25] MEDS: MAGNESIUM OXIDE 400 MG TABLET PO SCH (09:08)
[2019-04-25] MEDS: CIPROFLOXACIN HCL 500 MG TABLET PO SCH ×2 (09:08→22:24)
[2019-04-25] MEDS: TAMSULOSIN HCL 0.4 MG CAP.ER.24H PO SCH (09:08)
[2019-04-25] MEDS: ACETAMINOPHEN 500 MG TABLET PO SCH ×3 (09:08→22:22)
[2019-04-25] MEDS: ASCORBIC ACID 500 MG TAB PO SCH (09:08)
[2019-04-25] MEDS: AMLODIPINE BESYLATE 5MG TAB PO SCH (09:08)
[2019-04-25] MEDS: LISINOPRIL 10 MG TABLET PO SCH (09:08)
[2019-04-25] MEDS: SILVER SULFADIAZINE 25 GM CREAM TOP SCH (09:09)
--- NOTE | 2019-04-25 10:57 | Occupational Therapy Tx Note ---
Occupational Therapy Tx Note - Treatment Note Tolerated: Good Total Time Spent With Patient: 50 (ADL) Occupational Therapy Treatment Note: Detail (S: Pt resting in bed, agreeable to OT. O: Supine to sit Indly. Pt doffed gown with assist to untie and donned front closure shirt including snaps Indly. Pt donned pants Indly over feet and with SBA for sit to stand from EOB to fasten pants. Pt amb to sink with 2 wheeled walker and SBA and completed washing face, hands, oral hygiene and combing hair in static standing with SBA. Pt amb to toilet and completed toileting including pants mgmt and partial toileting hygiene with SBA, pt required assist for thoroughness of toileting hygiene. Pt able to pull pants up over hips Indly and amb to recliner with 2 wheeled walker and SBA. Pt left up in chair with alarm in place. A: Pt is Ind with partial dressing, Ind with oral hygiene, required several short rest breaks due to fatigue.) Occupational Therapy Problem List: Detail (1. Weakness BUE's 2. Decreased independence with ADLs 3. Decreased endurance to complete self care tasks safely 4. Decreased independence with functional mobility) Occupational Therapy Goals: 1. Patient to be independent with drsg using ADL equipment if needed. 2. Patient to show increased endurance to complete self care tasks safely. 3. Patient to be independent with sit<>stand t/fs from toilet level. 4. Patient will increase UB strength needed for ADLs and functional TFs Prognosis: Good Occupational Therapy Plan: OT to see patient 2-4x per week M- to address independence with self care, weakness of BUE's, and decreased endurance to complete self care safely.
--- NOTE | 2019-04-25 16:30 | Physical Therapy Tx Note ---
Physical Therapy Tx Note - Treatment Note Tolerated: Good Total Time Spent With Patient: 20 Physical Therapy Tx Note: Detail (Patient was seated in chair upon POWER PLANT OPERATOR APPRENTICE arrival. Patient states his legs are a little sore today. Patient transferred sit to and from stand CGA x1. Patient ambulated 36 feet with wheeled walker SBA x1. Patient transferred sit to and from stand CGA x1. Patient performed the following balance exercises x15 seconds each: DLS, DLS with eyes closed, and DLS with pertubations. Patient performed the following exercises x10 reps each: standing heel raises, standing toe raises, seated marching, LAQ, and seated hip abduction with yellow theraband. Patient tolerated treatment well. Patient required seated rest break with standing exercises due to fatigue. Patient displays decreased balance with DLS, and DLS with pertubations. Patient reports LEs sore after treatment. Patient was left reclined in chair with call light within reach.) Physical Therapy Problem List: Detail (1)Decreased LE strength 2) Limited ankle AROM 3)Assistance with bed mobility ambulation and transfers 4) Decreased standing balance 5)Limited ambulation due to decreased endurance.) Physical Therapy Goals: 1) Increase LE strength 1/3 muscle group to increase stability of gait. 2) Formally test balance using objective balance test. 3)The patient will be independent with bed mobility and transfers. 4) The patie nt will ambulate with appropriate assistive device household distances independently. 5) The patient will ambulate on stairs with supervision for safety. Prognosis: Good Physical Therapy Plan: PT 1-2 times a day M-F for gait training, transfer training, LE strengthening and balance exercises and bed mobility.
[2019-04-25] MEDS: PRAMIPEXOLE DI-HCL 0.25 MG TABLET PO SCH (22:25)
[2019-04-26] MEDS: AMLODIPINE BESYLATE 5MG TAB PO SCH (09:58)
[2019-04-26] MEDS: ENOXAPARIN 40 MG/0.4 ML SYR SQ SCH (09:58)
[2019-04-26] MEDS: CIPROFLOXACIN HCL 500 MG TABLET PO SCH ×2 (09:59→21:55)
[2019-04-26] MEDS: TAMSULOSIN HCL 0.4 MG CAP.ER.24H PO SCH (09:59)
[2019-04-26] MEDS: MAGNESIUM OXIDE 400 MG TABLET PO SCH (09:59)
[2019-04-26] MEDS: LISINOPRIL 10 MG TABLET PO SCH (09:59)
[2019-04-26] MEDS: ACETAMINOPHEN 500 MG TABLET PO SCH ×3 (09:59→21:56)
[2019-04-26] MEDS: ASCORBIC ACID 500 MG TAB PO SCH (09:59)
[2019-04-26] MEDS: FERROUS SULFATE 325 MG TAB PO SCH (09:59)
[2019-04-26] MEDS: CALCIUM CARB/VITAMIN D 500MG/200IU PO SCH (09:59)
[2019-04-26] MEDS: SILVER SULFADIAZINE 25 GM CREAM TOP SCH (10:00)
[2019-04-26 13:46] LABS: URINE APPEARANCE SL CLOUDY; URINE BILIRUBIN NEGATIVE (NEGATIVE); URINE BLOOD LARGE (NEGATIVE); URINE COLOR YELLOW; URINE GLUCOSE (UA) NEGATIVE (NEGATIVE); URINE KETONE NEGATIVE (NEGATIVE); URINE LEUKOCYTE ESTERASE NEGATIVE (NEGATIVE); URINE NITRITE NEGATIVE (NEGATIVE); URINE PROTEIN NEGATIVE (NEGATIVE); URINE UROBILINOGEN 0.2 E.U./dL (0.20 - 1.00)
[2019-04-26 13:53] LABS: URINE SQUAMOUS EPITHELIAL CELL 0 - 2 /hpf; URINE WBC 0 - 2 (0-2/hpf)
--- NOTE | 2019-04-26 16:20 | Physician Progress Note ---
Subjective - Date Date of Progress Note: 04/26/19 - Admitting Diagnosis Diagnosis: Deconditioning and weakness d/t UTI - Subjective Events since last encounter: Gross reports grossly bloody urine and UA sent to the lab. Patient denies abdominal pain and he is currently on lovenox DVT prophylaxis doses of 40 mg SC daily. He is moving arund much bettter than when he came here. Still slow moving Nursing Care Plan Problem List Activity Intolerance (Swing Bed) Start: 04/18/19 15:52 Freq: Status: Active Protocol: Created 04/18/19 15:52 SAF (Rec: 04/18/19 15:52 SAF [email or web address]) Altered Thought Process (Fall Risk) Start: 04/18/19 15:58 Freq: Status: Active Protocol: Created 04/18/19 15:58 SAF (Rec: 04/18/19 15:58 SAF [email or web address]) Impaired Mobility (Fall Risk) Start: 04/18/19 15:58 Freq: Status: Active Protocol: Created 04/18/19 15:58 SAF (Rec: 04/18/19 15:58 SAF [email or web address]-1) Knowledge Deficit (Swing Bed) Start: 04/18/19 15:52 Freq: Status: Active Protocol: Created 04/18/19 15:52 SAF (Rec: 04/18/19 15:52 SAF ASTS-1) Pain (Swing Bed) Start: 04/18/19 15:52 Freq: Status: Active Protocol: Created 04/18/19 15:52 SAF (Rec: 04/18/19 15:52 SAF [email or web address]-1) Risk for Injury (Fall Risk) Start: 04/18/19 15:58 Freq: Status: Active Protocol: Created 04/18/19 15:58 SAF (Rec: 04/18/19 15:58 SAF [email or web address]-1) Skin Integrity, Impaired (Swing Bed) Start: 04/18/19 23:26 Freq: Status: Active Protocol: Created 04/18/19 23:26 LPR (Rec: 04/18/19 23:26 LPR ASTS-1) General - Cognitive Patterns Speech: Normal Thought Process: Intact Thought Content: Normal - Communication Select best description of speech pattern: Clear Speech Ability to express ideas and wants: Understood Understanding verbal content: Usually Understands - Mood and Behavior Patterns Appearance: Well Groomed Mood: Normal Attitude: Cooperative Motor Activity: Calm Affect: Appropriate Hallucinations: Denies - Physical Functioning Activity Level: Up with assist x1 Turning: With partial assist ROM Ability: Limited/Compromised Assistive Devices: Walker Ambulation Ability: Needs Assist Bed Mobility: Needs Assist Transfer Ability: Needs Assist Bathing Ability: Needs Assist Personal Hygiene: Needs Assist Dressing Ability: Needs Assist Eating (Feeding) Ability: Independent Toileting Ability: Needs Assist Administer Own Medication: Needs Assist - Continence Bowel Pattern: Normal for Patient Bladder Pattern: Frequency Urinary Incontinence: Urge Meds/Allergies - Allergies Allergies Allergy/AdvReac Type Severity Reaction Status Date / Time No Known Drug Allergies Allergy Verified 04/15/19 16:49 - Active Medications Current Medications Acetaminophen (Tylenol 500mg Tab) 1,000 mg PO TID [facility] Last Admin: 04/26/19 09:59 Dose: 1,000 mg Documented by: Amlodipine Besylate (Norvasc) 5 mg PO DAILY [facility] Last Admin: 04/26/19 09:58 Dose: 5 mg Documented by: Ascorbic Acid (Vitamin C) 1,000 mg PO DAILY [facility] Last Admin: 04/26/19 09:59 Dose: 1,000 mg Documented by: Calcium/Vitamin D (Calcium 500+D Tablet) 1 tab PO DAILY [facility] Last Admin: 04/26/19 09:59 Dose: 1 tab Documented by: Ciprofloxacin (Cipro) 500 mg PO BID [facility] Stop: 04/29/19 10:01 Last Admin: 04/26/19 09:59 Dose: 500 mg Documented by: Ferrous Sulfate (Iron) 325 mg PO DAILY [facility] Last Admin: 04/26/19 09:59 Dose: 325 mg Documented by: Ibuprofen (Motrin 400mg) 400 mg PO Q8H PRN PRN Reason: PAIN - MILD (1-4) Last Admin: 04/25/19 20:03 Dose: 400 mg Documented by: Lisinopril (Zestril) 10 mg PO DAILY [facility] Last Admin: 04/26/19 09:59 Dose: 10 mg Documented by: Magnesium Oxide (Mag Ox) 400 mg PO DAILY [facility] Last Admin: 04/26/19 09:59 Dose: 400 mg Documented by: Patient Own Med: Gold Juarez Intense Moisture 1 each TOP BID PRN PRN Reason: FOR DRY SKIN AREAS Pramipexole Dihydrochloride (Pramipexole Dihydrochloride) 0.25 mg PO QHS [facility] Last Admin: 04/25/19 22:25 Dose: 0.25 mg Documented by: Silver Sulfadiazine (Ssd) 1 gm TOP DAILY [facility] Last Admin: 04/26/19 10:00 Dose: 1 gm Documented by: Tamsulosin HCl (Flomax) 0.4 mg PO DAILY [facility] Last Admin: 04/26/19 09:59 Dose: 0.4 mg Documented by: Zinc Oxide (Desitin) 1 gm TOP ASDIR PRN PRN Reason: skin protectant Last Admin: 04/23/19 10:59 Dose: 1 gm Documented by: Objective - Vital Signs Vital Signs: Vital Signs - Last 24 Hrs Temp Pulse Resp BP BP Pulse Ox 04/26/19 07:24 98.1 F 84 16 137/74 98 04/25/19 20:10 97.4 F L 90 16 130/74 95 - General General Appearance: Alert, Oriented x3, Cooperative, No acute distress - Head Head exam: Normal inspection - Eye Eye exam: Normal appearance, PERRL Pupils: Normal accommodation - ENT ENT exam: Other (slight left sided facial droop) Ear exam: Normal external inspection. negative: External canal tenderness Nasal Exam: Normal inspection Mouth exam: Normal external inspection Teeth exam: Normal inspection. negative: Dental caries Throat exam: Normal inspection. negative: Tonsillar erythema, Tonsillar exudate - Neck Neck exam: Normal inspection, Full ROM. negative: Tenderness - Respiratory Respiratory exam: Normal lung sounds bilaterally. negative: Accessory muscle use - Cardiovascular Cardiovascular Exam: Regular rate, Normal rhythm - GI/Abdominal GI/Abdominal exam: Soft, Normal bowel sounds, Hernia - Rectal Rectal exam: Deferred - exam: Deferred - Extremities Extremities exam: Normal capillary refill, Tenderness - Back Back exam: Reports: Normal inspection, Full ROM. Denies: Muscle spasm, Rash n oted, Tenderness - Neurological Neurological exam: Alert, Oriented X3 - Psychiatric Psychiatric exam: Normal affect, Normal mood - Skin Skin exam: Intact, Warm H&P Results - Labs Labs Last 24 Hours: Laboratory Results - last 24 hr 04/26/19 13:43 Urine Color Yellow Urine Appearance Sl cloudy Urine pH 6.0 Ur Specific Breese 1.020 Urine Protein Negative Urine Glucose (UA) Negative Urine Ketones Negative Urine Blood Large H Urine Nitrite Negative Urine Bilirubin Negative Urine Urobilinogen 0.2 Ur Leukocyte Esterase Negative Urine RBC Too numerous to cnt Urine WBC 0 - 2 U Non-Squamous Epi Cells 0 - 2 Discharge Potential - Discharge Needs Community Services Used Prior to Admission: None Patient Discharge Plan Description: Return Home Community Services Needed at Discharge: Oxygen Therapy, Physical Therapy Discharge Needs Comment: Pt may possibly benefit from [facility] services upon discharge depending on progress during stay and status at discharge home. Plan - Swing Bed Certification Initial Certification Due: 04/18/19 14 Day Re-Cert Due: 05/02/19 44 Day Re-Cert Due: 06/01/19 74 Day Re-Cert Due: 07/01/19 - Detailed Diagnosis and Plan (1) Hematuria Current Visit: Yes Status: Acute Base Code: R31.9 - HEMATURIA, UNSPECIFIED Comment: patient had gross hematuria time one the next urine slightly pink and he is urinating OK. Plan is encourage fluids and will stop the lovenox and obtain a consult with Dr Cortez urology when he is here.
[2019-04-26] MEDS: PRAMIPEXOLE DI-HCL 0.25 MG TABLET PO SCH (21:55)
[2019-04-27] MEDS: CALCIUM CARB/VITAMIN D 500MG/200IU PO SCH (10:38)
[2019-04-27] MEDS: LISINOPRIL 10 MG TABLET PO SCH (10:38)
[2019-04-27] MEDS: ACETAMINOPHEN 500 MG TABLET PO SCH ×3 (10:38→21:37)
[2019-04-27] MEDS: MAGNESIUM OXIDE 400 MG TABLET PO SCH (10:38)
[2019-04-27] MEDS: FERROUS SULFATE 325 MG TAB PO SCH (10:39)
[2019-04-27] MEDS: TAMSULOSIN HCL 0.4 MG CAP.ER.24H PO SCH (10:39)
[2019-04-27] MEDS: AMLODIPINE BESYLATE 5MG TAB PO SCH (10:39)
[2019-04-27] MEDS: CIPROFLOXACIN HCL 500 MG TABLET PO SCH ×2 (10:39→21:38)
[2019-04-27] MEDS: SILVER SULFADIAZINE 25 GM CREAM TOP SCH (10:39)
[2019-04-27] MEDS: ASCORBIC ACID 500 MG TAB PO SCH (10:39)
[2019-04-27] MEDS ORDERED: LORATADINE 10 MG TABLET PO ONE (13:39)
[2019-04-27] MEDS: PRAMIPEXOLE DI-HCL 0.25 MG TABLET PO SCH (21:35)
[2019-04-27] MEDS: LORATADINE 10 MG TABLET PO SCH (21:36)
[2019-04-28] MEDS: ASCORBIC ACID 500 MG TAB PO SCH (10:49)
[2019-04-28] MEDS: MAGNESIUM OXIDE 400 MG TABLET PO SCH (10:49)
[2019-04-28] MEDS: CALCIUM CARB/VITAMIN D 500MG/200IU PO SCH (10:49)
[2019-04-28] MEDS: LORATADINE 10 MG TABLET PO SCH (10:49)
[2019-04-28] MEDS: LISINOPRIL 10 MG TABLET PO SCH (10:49)
[2019-04-28] MEDS: ACETAMINOPHEN 500 MG TABLET PO SCH ×3 (10:50→21:29)
[2019-04-28] MEDS: FERROUS SULFATE 325 MG TAB PO SCH (10:50)
[2019-04-28] MEDS: TAMSULOSIN HCL 0.4 MG CAP.ER.24H PO SCH (10:50)
[2019-04-28] MEDS: AMLODIPINE BESYLATE 5MG TAB PO SCH (10:50)
[2019-04-28] MEDS: CIPROFLOXACIN HCL 500 MG TABLET PO SCH ×2 (10:51→21:30)
[2019-04-28] MEDS: SILVER SULFADIAZINE 25 GM CREAM TOP SCH ×2 (10:51→15:00)
--- NOTE | 2019-04-28 10:53 | Occupational Therapy Tx Note ---
Occupational Therapy Tx Note - Treatment Note Tolerated: Good Total Time Spent With Patient: 35 (ADL) Occupational Therapy Treatment Note: Detail (S: Pt up in recliner chair, sleepy. O: Sit to stand and amb to toilet with 2 wheeled walker and SBA. Pt completed toileting with supervision and encouragement. He was able to complete brief mgmt and toileting hygiene Indly after encouragement. Sit to stand and amb to sink with 2 wheeled walker with SBA. Pt doffed shirt Indly and completed upper body sponge bathing Indly in standing. Pt donned shirt Indly. Pt amb to chair with 2 wheeled walker and SBA. Pt donned pants Indly. Pt able to comb hair Indly. He reports he usually washes his hair in the sink 1 x each week. Pt left up in chair. A: Ind with toileting, Ind with upper body sponge bathing, Ind with upper body dressing as well as pants. Improved endurance today with ADLs) Occupational Therapy Problem List: Detail (1. Weakness BUE's 2. Decreased independence with ADLs 3. Decreased endurance to complete self care tasks safely 4. Decreased independence with functional mobility) Occupational Therapy Goals: 1. Patient to be independent with drsg using ADL equipment if needed. 2. Patient to show increased endurance to complete self care tasks safely. 3. Patient to be independent with sit<>stand t/fs from toilet level. 4. Patient will increase UB strength needed for ADLs and functional TFs Prognosis: Good Occupational Therapy Plan: OT to see patient 2-4x per week M-F to address independence with self care, weakness of BUE's, and decreased endurance to complete self care safely.
--- NOTE | 2019-04-28 14:33 | Physical Therapy Tx Note ---
Physical Therapy Tx Note - Treatment Note Tolerated: Good Total Time Spent With Patient: 30 Physical Therapy Tx Note: Detail (The patient was up in chair when PT arrived. The patient was independent with sit to and from stand from recliner and wheelchair. The patient ambulated a total of 20 ft x 2 with front wheeled walker with supervision for safety only. The patient ambulated on 3 steps with 2 railings with CG of 1 for safety . The patient completed the following LE strengthening exercises including: resistive hamstring curls, LAQ, green T band hip abduction, hip adductor squeezes, ankle pumps and hip marching all x 10 reps. The patient was returned to room and ambulated to bed for a dressing change. The patient was independent with sit to supine and scooting self sideways. The patient required min to mod PA of one to scoot up in bed. The patient continues to steadily improve with mobility.) Physical Therapy Problem List: Detail (1)Decreased LE strength 2) Limited ankle AROM 3)Assistance with bed mobility ambulation and transfers 4) Decreased standing balance 5)Limited ambulation due to decreased endurance.) Physical Therapy Goals: 1) Increase LE strength 1/3 muscle group to increase stability of gait. 2) Formally test balance using objective balance test. 3)The patient will be independent with bed mobility and transfers. 4) The patient will ambulate with appropriate assistive device household distances independently. 5) The patient will ambulate on stairs with supervision for safety. Physical Therapy Plan: PT 1-2 times a day M-F for gait training, transfer traini ng, LE strengthening and balance exercises and bed mobility.
[2019-04-28] MEDS: PRAMIPEXOLE DI-HCL 0.25 MG TABLET PO SCH (21:30)
[2019-04-29 06:20] LABS: ABSOLUTE NEUTROPHIL COUNT 4.31; BASO % 0.8 % (0-6); EOS % 4.9 % (0-6); GRAN % 69.8 % (47-80); HEMATOCRIT 36.4 % (42.0-52.0); HEMOGLOBIN 11.1 gm/dl (14.0-18.0); LYMPH % 15.4 % (16-45); MEAN CORPUSCULAR HGB CONC 30.5 g/dl (32-36); MEAN PLATELET VOLUME 8.9 fl (7.4-10.4); MONO % 9.1 % (0-9); PLATELET COUNT 405 K/uL (130-400); RED BLOOD COUNT 3.79 M/uL (4.40-5.70); RED CELL DISTRIBUTION WIDTH 16.2 % (11.5-14.5); WHITE BLOOD COUNT W/O DIFF 6.2 K/uL (4.2-12.2)
[2019-04-29 06:28] LABS: MEAN CORPUSCULAR HEMOGLOBIN 29.2 pg (27-33)
[2019-04-29 06:32] LABS: BLOOD UREA NITROGEN 22 mg/dL (8-23); CREATININE 0.7 mg/dL (0.7-1.2); EST GLOMERULAR FILTRATION RATE > 60 mL/min; GLUCOSE,RANDOM 93 mg/dL (74-109)
[2019-04-29] MEDS: LORATADINE 10 MG TABLET PO SCH (10:19)
[2019-04-29] MEDS: AMLODIPINE BESYLATE 5MG TAB PO SCH (10:19)
[2019-04-29] MEDS: ACETAMINOPHEN 500 MG TABLET PO SCH ×3 (10:19→21:17)
[2019-04-29] MEDS: CIPROFLOXACIN HCL 500 MG TABLET PO SCH (10:19)
[2019-04-29] MEDS: ASCORBIC ACID 500 MG TAB PO SCH (10:20)
[2019-04-29] MEDS: CALCIUM CARB/VITAMIN D 500MG/200IU PO SCH (10:20)
[2019-04-29] MEDS: FERROUS SULFATE 325 MG TAB PO SCH (10:20)
[2019-04-29] MEDS: LISINOPRIL 10 MG TABLET PO SCH (10:20)
[2019-04-29] MEDS: TAMSULOSIN HCL 0.4 MG CAP.ER.24H PO SCH (10:20)
[2019-04-29] MEDS: MAGNESIUM OXIDE 400 MG TABLET PO SCH (10:20)
[2019-04-29] MEDS: SILVER SULFADIAZINE 25 GM CREAM TOP SCH (10:21)
--- NOTE | 2019-04-29 13:53 | Physical Therapy Tx Note ---
Physical Therapy Tx Note - Treatment Note Tolerated: Good Total Time Spent With Patient: 30 Physical Therapy Tx Note: Detail (The patient was up in chair when PT arrived. The patient ambulated 62 feet x 1 with front wheeled walker with supervision for safety only. The patient ambulated on 3 steps with use of one railing(both hands on railings) with CG/minimal PA of 1 to shift weight forward when descending stairs and CG of 1 when ascending stairs using step over step method. The patient's balance was using the Tinetti Assessment Tool and scored: 16/28 which is in the high risk for falls category. The patient completed the following LE exercises seated, due to fatigue: ankle pumps, LAQ, hip marching, manual resistive hip abduction, hip adductor squeezes all x 10 reps, gluteal sets x 10 reps. Will practice ambulating on stairs with one railing for one more sess ions.) Physical Therapy Problem List: Detail (1)Decreased LE strength 2) Limited ankle AROM 3)Assistance with bed mobility ambulation and transfers 4) Decreased standing balance 5)Limited ambulation due to decreased endurance.) Physical Therapy Goals: 1) Increase LE strength 1/3 muscle group to increase stability of gait. 2) Formally test balance using objective balance test. 3)The patient will be independent with bed mobility and transfers. 4) The patient will ambulate with appropriate assistive device household distances independently. 5) The patient will ambulate on stairs with supervision for safety. Physical Therapy Plan: PT 1-2 times a day M-F for gait training, transfer training, LE strengthening and balance exercises and bed mobility.
--- NOTE | 2019-04-29 15:58 | Occupational Therapy Tx Note ---
Occupational Therapy Tx Note - Treatment Note Tolerated: Good Total Time Spent With Patient: 48 (1 ADL, 2 TA) Occupational Therapy Treatment Note: Detail (S: Pt agreeable to OT Tx. Upright in chair upon therapist arrival. O: Pt requests to use the toilet, supervision from EOB >< standard toilet with FWW, including standing pant mgmt and wiping in standing, slightly unsteady but no LOB, Pt uses GB at toilet for increased support when increased unsteadiness noted. Verbal reminders for hand washing, Pt asks, "Did I wash my hands yet?" and reminders to rinse soap prior to drying hands. ADL item retrieval - reaching above shld level and to floor level with CGA for safety. Retrieves 10 items with use of walker and therapist educate/demo technique of one hand on walker while bending to floor, no LOB and good follow thru with technique. Pt retrieves 5 items without use of walker, as Pt reports, "I won't use my walker much after the first couple days home." Therapist educates Pt on importance of walker for safety, but also practices task without to challenge balance and for therapist education on safe techniques without walker for increased safety if Pt abandons walker at home as he states he will. Therapist also educates Pt on side stepping with walker for narrow hallways during functional item retrieval to increase compliance to walker use at home. Pt dons/doffs socks with supervision - verbal cueing on technique to don socks by reaching to floor vs. lifting leg, poor follow through from previous sessions. A: Pt demos largely increased fxl endurance, strength, balance and independence with ADL tasks and functional TFs since admit. Will benefit from walker use at [place], Pt verbalizes understanding.) Occupational Therapy Problem List: Detail (1. Weakness BUE's 2. Decreased independence with ADLs 3. Decreased endurance to complete self care tasks safely 4. Decreased independence with functional mobility) Occupational Therapy Goals: 1. Patient to be independent with drsg using ADL equipment if needed. 2. Patient to show increased endurance to complete self care tasks safely. 3. Patient to be independent with sit<>stand t/fs from toilet level. 4. Patient will increase UB strength needed for ADLs and functional TFs Prognosis: Good Occupational Therapy Plan: OT to see patient 2-4x per week M-F to address independence with self care, weakness of BUE's, and decreased endurance to complete self care safely.
[2019-04-29] MEDS: PRAMIPEXOLE DI-HCL 0.25 MG TABLET PO SCH (21:17)
[2019-04-30] MEDS: CALCIUM CARB/VITAMIN D 500MG/200IU PO SCH (09:25)
[2019-04-30] MEDS: AMLODIPINE BESYLATE 5MG TAB PO SCH (09:25)
[2019-04-30] MEDS: LISINOPRIL 10 MG TABLET PO SCH (09:25)
[2019-04-30] MEDS: MAGNESIUM OXIDE 400 MG TABLET PO SCH (09:25)
[2019-04-30] MEDS: TAMSULOSIN HCL 0.4 MG CAP.ER.24H PO SCH (09:25)
[2019-04-30] MEDS: LORATADINE 10 MG TABLET PO SCH (09:25)
[2019-04-30] MEDS: FERROUS SULFATE 325 MG TAB PO SCH (09:25)
[2019-04-30] MEDS: ACETAMINOPHEN 500 MG TABLET PO SCH ×3 (09:25→21:51)
[2019-04-30] MEDS: SILVER SULFADIAZINE 25 GM CREAM TOP SCH (10:23)
[2019-04-30] MEDS: ASCORBIC ACID 500 MG TAB PO SCH (10:23)
--- NOTE | 2019-04-30 12:00 | Physical Therapy Tx Note ---
Physical Therapy Tx Note - Treatment Note Tolerated: Good Total Time Spent With Patient: 30 Physical Therapy Tx Note: Detail (The patient was up in chair when PT arrived. The patient ambulated with front wheeled walker to bathroom independently and was able to handle pants independently. The patient ambulated 36 feet to stairs with supervision for safety. The patient ambulated on stairs with CG with two hands on one railing when descending stairs and one railing and reciprocal gait pattern when ascending stairs. The patient was taken to Rehab department and completed the following exercises in the parallel bars: squats, hip abduction and marching in place all x 10 reps., walking sideways and standing balance with varying bases of support and perturbations. The patient ambulated on stairs with just CG today.) Physical Therapy Problem List: Detail (1)Decreased LE strength 2) Limited ankle AROM 3)Assistance with bed mobility ambulation and transfers 4) Decreased standing balance 5)Limited ambulation due to decreased endurance.) Physical Therapy Goals: 1) Increase LE strength 1/3 muscle group to increase stability of gait. 2) Formally test balance using objective balance test. 3)The patient will be independent with bed mobility and transfers. 4) The patient will ambulate with appropriate assistive device household distances independently. 5) The patient will ambulate on stairs with supervision for safety. Physical Therapy Plan: PT 1-2 times a day M-F for gait training, transfer training, LE strengthening and balance exercises and bed mobility.
--- NOTE | 2019-04-30 13:58 | Occupational Therapy Tx Note ---
Occupational Therapy Tx Note - Treatment Note Tolerated: Good Total Time Spent With Patient: 40 (TherEx 2) Occupational Therapy Treatment Note: Detail (Pt sitting in bedside chair with feet elevated upon arrival. Supervision sit<>stand t/f and stand - pivot t/f into w/c using 2WW. Completed re-evaluation of pt's upper extremities. Patient grossly 4/5 on LUE with shoulder flex/ext, shoulder abd/add, and elbow flex/ext. Patient grossly 3+/5 on RUE with same above motions. Progress made with patients strength improved in LUE but remains the same in RUE. Some weakness remains in bilateral gross grasp. Patient stating that he does feel stronger overall in his arms. Dependent w/c mobility into rehab gym to complete UE strengthening and balance exercises. Patient completed resistive clothespins on vertical pole in standing. Able to clip all but 7 clothespins using LUE before needing a rest break. Pt took 3 min rest break, ind. sit<>stand t/f to take clothespins down with RUE. Patient remained sitting in w/c for rest of ex's including gross grasp strengthening using hand helper x15 each hand (2 green rubber bands), flexbar for pronation/supination ex 15x each (yellow), and 3# bicep curls 10 reps each side. Patient took ~ 2 min rest break between ex's. Patient c/o fatigue post end of treatment and was taken back to room. Supervision t/f stand>sit into bedside chair. Patient's feet elevated with pillow underneath, call light in reach, tray table next to patient.) Occupational Therapy Problem List: Detail (1. Weakness BUE's 2. Decreased independence with ADLs 3. Decreased endurance to complete self care tasks safely 4. Decreased independence with functional mobility) Occupational Therapy Goals: 1. Patient to be independent with drsg using ADL equipment if needed. 2. Patient to show increased endurance to complete self care tasks safely. 3. Patient to be independent with sit<>stand t/fs from toilet level. 4. Patient will increase UB strength needed for ADLs and functional TFs Prognosis: Moderate Occupational Therapy Plan: OT to see patient 2-4x per week M-F to address independence with self care, weakness of BUE's, and decreased endurance to complete self care safely.
[2019-04-30] MEDS: PRAMIPEXOLE DI-HCL 0.25 MG TABLET PO SCH (21:55)
--- NOTE | 2019-05-01 11:00 | Physical Therapy Tx Note ---
Physical Therapy Tx Note - Treatment Note Tolerated: Good Total Time Spent With Patient: 30 Physical Therapy Tx Note: Detail (Patient was reclined in chair upon SEWER BRICKLAYER arrival. Patient transferred sit to and from stand CGA x1. Patient ambulated 65 feet with wheeled walker CGA x1. Patient transferred sit to and from stand CGA x1. Patient performed standing heel raises x10 reps. Patient ambulated 10 feet with wheeled walker CGA x1. Patient transferred sit to and from stand SBA x1. Patient ambulated 11 feet with wheeled walker CGA x1. Patient transferred sit to and from stand CGA x1. Patient performed the following exercises x10 reps each: standing hamstring curls, LAQ, seated marching, and hip adductor squeeze. Patient tolerated treatment well. Patient reports feeling tired after treatment. Patient was left reclined in chair with call light within reach.) Physical Therapy Problem List: Detail (1)Decreased LE strength 2) Limited ankle AROM 3)Assistance with bed mobility ambulation and transfers 4) Decreased standing balance 5)Limited ambulation due to decreased endurance.) Physical Therapy Goals: 1) Increase LE strength 1/3 muscle group to increase stability of gait. 2) Formally test balance using objective balance test. 3)The patient will be independent with bed mobility and transfers. 4) The patient will ambulate with appropriate assistive device household distances independently. 5) The patient will ambulate on stairs with supervision for safety. Prognosis: Good Physical Therapy Plan: PT 1-2 times a day M-F for gait training, transfer training, LE strengthening and balance exercises and bed mobility.
[2019-05-01] MEDS: ASCORBIC ACID 500 MG TAB PO SCH (12:19)
[2019-05-01] MEDS: ACETAMINOPHEN 500 MG TABLET PO SCH ×3 (12:20→21:07)
[2019-05-01] MEDS: FERROUS SULFATE 325 MG TAB PO SCH (12:20)
[2019-05-01] MEDS: LORATADINE 10 MG TABLET PO SCH (12:20)
[2019-05-01] MEDS: AMLODIPINE BESYLATE 5MG TAB PO SCH (12:20)
[2019-05-01] MEDS: LISINOPRIL 10 MG TABLET PO SCH (12:20)
[2019-05-01] MEDS: TAMSULOSIN HCL 0.4 MG CAP.ER.24H PO SCH (12:20)
[2019-05-01] MEDS: CALCIUM CARB/VITAMIN D 500MG/200IU PO SCH (12:20)
[2019-05-01] MEDS: MAGNESIUM OXIDE 400 MG TABLET PO SCH (12:21)
[2019-05-01] MEDS: SILVER SULFADIAZINE 25 GM CREAM TOP SCH (12:21)
--- NOTE | 2019-05-01 16:29 | Physical Therapy Tx Note ---
Physical Therapy Tx Note - Treatment Note Tolerated: Good Total Time Spent With Patient: 30 Physical Therapy Tx Note: Detail (Patient was seated in chair upon HOOK PULLER arrival. Patient transferred sit to and from stand x2 CGA x1. Patient ambulated 11 feet x2 with wheeled walker CGA x1. Patient transferred sit to and from stand CGA x1. Patient ambulated 80 feet with wheeled walker CGA x1. Patient performed the following exercises: sit to and from transfer x5, standing marching x10. Patient performed the following balance exercises x15 seconds each: DLS, DLS with looking side to side, DLS with looking up and down, DLS with eyes closed, feet together, feet together with eyes closed, and tandem stance. Patient tolerated treatment well. Patient required a couple seated rest breaks with exercises due to fatigue. Patient reports LEs feel tired after treatment. Patient was left reclined in chair with call light within reach.) Physical Therapy Problem List: Detail (1)Decreased LE strength 2) Limited ankle AROM 3)Assistance with bed mobility ambulation and transfers 4) Decreased standing balance 5)Limited ambulation due to decreased endurance.) Physical Therapy Goals: 1) Increase LE strength 1/3 muscle group to increase stability of gait. 2) Formally test balance using objective balance test. 3)The patient will be independent with bed mobility and transfers. 4) The patient will ambulate with appropriate assistive device household distances independently. 5) The patient will ambulate on stairs with supervision for safety. Prognosis: Good Physical Therapy Plan: PT 1-2 times a day M-F for gait training, transfer training, LE strengthening and balance exercises and bed mobility.
[2019-05-01] MEDS: PRAMIPEXOLE DI-HCL 0.25 MG TABLET PO SCH (21:07)
--- NOTE | 2019-05-02 10:43 | Rehab Discharge Summary ---
Patient Information - Patient Information Diagnosis: Cellulitis, CHF, deconditioning Ordered Treatment: PT Evaluate and Treat Surgery: No Past Medical/Surgical Hx: PAST MEDICAL/SURGICAL HISTORY Past Surgical History cardiac stent PMH - Respiratory Hx Respiratory Disorders No PMH - Cardiovascular Hx Cardiovascular Disorders Yes Hx Heart Attack Yes: 2016 PMH - Neuro Hx Neurological Disorders No Hx Seizures No PMH - GI Hx Gastrointestinal Disorders No PMH - Hx Genitourinary Disorders No PMH - Endocrine Hx Endocrine Disorders No Hx Diabetes No PMH - Musculoskeletal Hx Musculoskeletal Disorders Yes Hx Arthritis Yes PMH - Psych Hx Psychiatric Problems No PMH - Hematology/Oncology Hx Hematology/Oncology No Disorders Premorbid Status: Detail (The patient reports he was ambulating without assistive device at home. 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 He does not have a shower (bathtub only) and usually "washes up" once and awhile at the sink.) Social History: Detail (The patient lives with 7 family members including in a 2 story house with basement with pt. primarily living on the first floor. There are 2 steps at the enterance without a handrail. The bathroom is equipped with a tub and the patient stated he usually takes a sponge bath. The bathrooom also has a standard toilet. No grab bars are present in th bathroom. The patient states he does not has equipment but his has 2 walkers- one 4 wheeled walker and one with 2 wheels. His also has a wheelchair and standard cane.) Precautions: [place], Fall Subjective Information - Subjective Information Per Patient (The patient has occasional complaints of tenderness in LE's with light touch, R LE greater then L LE.) Objective Data - Mental Status Patient Orientation: Oriented x3 - ROM Within normal limits (Minimal limitations in knee extension actively on R LE and R ankle dorsiflexion aprox. 5 degrees.) - Strength/Tone Not within normal limits (LE strength: hip flexors: R hip 4-/5, L 4/5, hip abductors R 4-/5, L 4/5, hip adductors bilaterally 4/5, bilateral knee extensors 4/5, R knee flexors 4-/5, L 4/5, ankle musculature bilaterally 4/5.) - Bed Mobility Independent (The patient was independent with supine to and from sit transfer.) - Balance Balance Sitting: Good Balance Standing: Fair (The patient's balance using Tinetti Assessment Tool is 16/28 which is the high risk for falling category.) - Gait Detail (The patient ambulated a maximal distance of 80 feet with front wheeled walker independently. The patient ambulated 10 feet without device with supervision/CG gaurding for safety. Use of front wheeled walker at home is recommended. The patient's gait pattern is characterized by bilateral decreased stride length and shuffling steps. The patient ambulated on 3 steps with use of one railing with supervision/CG for safety. The patient descended stairs with 2 handholds on railing and ascended the stairs using reciprocal gait pattern.) Therapy Assessment - Therapy Assessment Detail (The patient exhibits improved LE strength and increased independence with all mobility. The patient continues to have impaired balance and is a high risk for falling candidate as measured by the Tinetti Assessment Tool. Home PT is recommended for ongoing strengthening and balance exercises and to progress ambulation.) Patient Education - Patient Education Teaching Topic: Exercise/Activity (The patient was given a HEP of seated LE strengthening exercises.) Response: Return Demonstration Teaching Method: Demonstration, Handout Teaching Recipient: Patient Barriers To Learning: Age Related Problem List - Problem List Physical Therapy Problem List: Detail (1)Decreased LE strength 2) Limited ankle AROM 3)Assistance with bed mobility ambulation and transfers 4) Decreased standing balance 5)Limited ambulation due to decreased endurance.) Occupational Therapy Problem List: Detail (1. Weakness BUE's 2. Decreased independence with ADLs 3. Decreased endurance to complete self care tasks safely 4. Decreased independence with functional mobility) Goals - Goals Physical Therapy Goals: 1) Increase LE strength 1/3 muscle group to increase stability of gait.(Goal met-except for R hamstrings). 2) Formally test balance using objective balance test.(Goal Met). 3)The patient will be independent with bed mobility and transfers (Goal Met). 4) The patient will ambulate with appropriate assistive device household distances independently (Goal Met). 5) The patient will ambulate on stairs with supervision for safety. Occupational Therapy Goals: 1. Patient to be independent with drsg using ADL equipment if needed. 2. Patient to show increased endurance to complete self care tasks safely. 3. Patient to be independent with sit<>stand t/fs from toilet level. 4. Patient will increase UB strength needed for ADLs and functional TFs Plan - Plan Physical Therapy Plan: The patient is discharging from [facility] to Home and is to receive Home PT/OT. Occupational Therapy Plan: OT to see patient 2-4x per week M-F to address independence with self care, weakness of BUE's, and decreased endurance to complete self care safely.
[2019-05-02] MEDS: MAGNESIUM OXIDE 400 MG TABLET PO SCH (10:57)
[2019-05-02] MEDS: TAMSULOSIN HCL 0.4 MG CAP.ER.24H PO SCH (10:58)
[2019-05-02] MEDS: ACETAMINOPHEN 500 MG TABLET PO SCH (10:58)
[2019-05-02] MEDS: CALCIUM CARB/VITAMIN D 500MG/200IU PO SCH (10:58)
[2019-05-02] MEDS: AMLODIPINE BESYLATE 5MG TAB PO SCH (10:58)
[2019-05-02] MEDS: FERROUS SULFATE 325 MG TAB PO SCH (10:58)
[2019-05-02] MEDS: LORATADINE 10 MG TABLET PO SCH (10:58)
[2019-05-02] MEDS: LISINOPRIL 10 MG TABLET PO SCH (10:58)
[2019-05-02] MEDS: ASCORBIC ACID 500 MG TAB PO SCH (10:58)
[2019-05-02] MEDS: SILVER SULFADIAZINE 25 GM CREAM TOP SCH (10:59)
--- NOTE | 2019-05-02 11:20 | Rehab Discharge Summary ---
Patient Information - Patient Information Diagnosis: Cellulitis, CHF, deconditioning Ordered Treatment: OT Evaluate and Treat Surgery: No Past Medical/Surgical Hx: PAST MEDICAL/SURGICAL HISTORY Past Surgical History cardiac stent PMH - Respiratory Hx Respiratory Disorders No PMH - Cardiovascular Hx Cardiovascular Disorders Yes Hx Heart Attack Yes: 2016 PMH - Neuro Hx Neurological Disorders No Hx Seizures No PMH - GI Hx Gastrointestinal Disorders No PMH - Hx Genitourinary Disorders No PMH - Endocrine Hx Endocrine Disorders No Hx Diabetes No PMH - Musculoskeletal Hx Musculoskeletal Disorders Yes Hx Arthritis Yes PMH - Psych Hx Psychiatric Problems No PMH - Hematology/Oncology Hx Hematology/Oncology No Disorders Premorbid Status: Detail (The patient reports he was ambulating without assistive device at home. 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 He does not have a shower (bathtub only) and usually "washes up" once and awhile at the sink.) Social History: Detail (The patient lives with 7 family members including in a 2 story house with basement with pt. primarily living on the first floor. There are 2 steps at the enterance without a handrail. The bathroom is equipped with a tub and the patient stated he usually takes a sponge bath. The bathrooom also has a standard toilet. No grab bars are present in th bathroom. The patient states he does not has equipment but his has 2 walkers- one 4 wheeled walker and one with 2 wheels. His also has a wheelchair and standard cane.) Precautions: [place], Fall Objective Data - Pain Pain Present: No - Mental Status Patient Orientation: Oriented x3 - Visual Perception Appears within normal limits for therapeutic activities - ROM Not within normal limits (Harvey shoulder flexion ~ 135 degrees, abd ~ 120 degrees, remaining harvey UE AROM unchanged from initial eval, functional for ADLs.) - Strength/Tone Not within normal limits (Right UE grossly 3+/5, left UE grossly 4/5) - Coordination Appears within normal limits for therapeutic activities - Bed Mobility Independent (Ind with supine to sit) - Transfers Independent (Ind with sit to stand from EOB and recliner) - Balance Balance Sitting: Good Balance Standing: Fair - Sensation Intact - Gait Detail (Pt ambulating short distances with 2 wheeled walker and SBA) - ADL's/IADL's Detail (Pt able to demonstrate Ind with sponge bathing and total body dressing.) Therapy Assessment - Therapy Assessment Detail (Pt is Ind with functional mobility and self care skills.) Problem List - Problem List Physical Therapy Problem List: Detail (1)Decreased LE strength 2) Limited ankle AROM 3)Assistance with bed mobility ambulation and transfers 4) Decreased standing balance 5)Limited ambulation due to decreased endurance.) Occupational Therapy Problem List: Detail (1. Weakness BUE's 2. Decreased indep endence with ADLs 3. Decreased endurance to complete self care tasks safely 4. Decreased independence with functional mobility) Goals - Goals Physical Therapy Goals: 1) Increase LE strength 1/3 muscle group to increase stability of gait.(Goal met-except for R hamstrings). 2) Formally test balance using objective balance test.(Goal Met). 3)The patient will be independent with bed mobility and transfers (Goal Met). 4) The patient will ambulate with appropriate assistive device household distances independently (Goal Met). 5) The patient will ambulate on stairs with supervision for safety. Occupational Therapy Goals: Goals Met: 1. Patient to be independent with drsg using ADL equipment if needed. 2. Patient to show increased endurance to complete self care tasks safely. 3. Patient to be independent with sit<>stand t/fs from toilet level. 4. Patient will increase UB strength needed for ADLs and functional TFs Prognosis - Prognosis Good Plan - Plan Physical Therapy Plan: The patient is discharging from [facility] to Home and is to receive Home PT/OT. Occupational Therapy Plan: Pt discharging home with home OT/PT.
--- NOTE | 2019-05-02 14:12 | Discharge Summary ---
Providers Discharge Summary Date: 05/02/19 Date of admission: 04/18/19 14:27 Attending physician: EMMANUEL BLUNT Primary care physician: Sin Agudelo N.P. Consults: Consult Orders 04/18/19 16:45 Consult - Case Management NOW Comment: Reason For Exam: After discharge care 04/26/19 15:55 Consult NOW Consulting Provider: Santana Cortez Physician Instructions: Reason For Exam: gross hematuria,consult when here next Physical Exam - Vital Signs Vital Signs: Vital Signs - Last 24 Hrs Temp Pulse Resp BP Pulse Ox 05/02/19 09:00 97.5 F L 112 H 16 113/57 98 - General General Appearance: Alert, Oriented x3, Cooperative, No acute distress - Head Head exam: Normal inspection - Eye Eye exam: Normal appearance, PERRL Pupils: Normal accommodation - ENT ENT exam: Other (slight left sided facial droop) Ear exam: Normal external inspection. negative: External canal tenderness Nasal Exam: Normal inspection Mouth exam: Normal external inspection Teeth exam: Normal inspection. negative: Dental caries Throat exam: Normal inspection. negative: Tonsillar erythema, Tonsillar exudate - Neck Neck exam: Normal inspection, Full ROM. negative: Tenderness - Respiratory Respiratory exam: Normal lung sounds bilaterally. negative: Accessory muscle use - Cardiovascular Cardiovascular Exam: Regular rate, Normal rhythm - GI/Abdominal GI/Abdominal exam: Soft, Normal bowel sounds, Hernia - Rectal Rectal exam: Deferred - exam: Deferred - Extremities Extremities exam: Normal capillary refill, Tenderness - Back Back exam: Reports: Normal inspection, Full ROM. Denies: Muscle spasm, Rash noted, Tenderness - Neurological Neurological exam: Alert, Oriented X3 - Psychiatric Psychiatric exam: Normal affect, Normal mood - Skin Skin exam: Intact, Warm Hospitalization - Hospitalization Admission Diagnosis: Deconditioning and weakness d/t UTI - Problem List/Discharge Diagnosis (1) Physical deconditioning Status: Acute Base Code: R53.81 - OTHER MALAISE Comment: 05/02/19 -Hospitalized at [facility] from 04/15/19 to 04/18/19 for UTI, BLE skin ulcers and generalized weakness - PT/OT reporting imporovement in function and good prognosis. - Home with C and family support. (2) Ulcer of lower extremity Status: Acute Base Code: L97.909 - NON-PRS CHRONIC ULC UNSP PRT OF UNSP LOW LEG W UNSP SEVERITY Comment: 05/02/19 - mild-moderate erythema of posterior right leg. - possible r/t arterial insufficiency - silver sulfadiazene to open areas daily, apply adaptic and kerlix - moisturization to both legs daily. Offloading and bridging to continue at discharge. (3) Pressure sore Status: Acute Discharge Diagnosis: Pressure injury location: calf Pressure injury stage: unspecified pressure injury stage Laterality: right Qualified Code(s): L89.899 - Pressure ulcer of other site, unspecified stage Base Code: L89.90 - PRESSURE ULCER OF UNSPECIFIED SITE, UNSPECIFIED STAGE Comment: 05/02/19: - Bridging, dressing with Aquphor daily. (4) Hypertension Status: Acute Base Code: I10 - ESSENTIAL (PRIMARY) HYPERTENSION Comment: 05/02/19 - Echo: EF 60-65% - On Lisinopril 5mg, Norvasc 5mg daily. (5) Urinary hesitancy Status: Acute Base Code: R39.11 - HESITANCY OF MICTURITION Comment: 05/02/19 - Continue Flomax 0.4mg daily (6) DVT prophylaxis Status: Acute Base Code: Z29.9 - ENCOUNTER FOR PROPHYLACTIC MEASURES, UNSPECIFIED Comment: 05/02/19 -High risk d/t age and co-morbidities -Lovenox 40mg SQ daily until more frequent ambulation (7) DNR (do not resuscitate) Status: Acute Base Code: Z66 - DO NOT RESUSCITATE Comment: 05/02/19: - Patient was DNR - Hospitalization Course Disposition: Home Health Service Hospital Course: Gaetano Castillo is a 78 y.o. M who admits to the Swing Bed program at [facility] for physical deconditioning and wound care services. He admitted to [facility] on 04/15/19 d/t UTI, possible cellulitis and generalized weakness. Complete PMHx unk nown but he did report hx of SC with stent placement in 2016 and "mini-strokes". He had not been taking any medications for 3 years. He was started on IV antibiotics, wound care and PT/OT. Medications were initiated to manage various s/sx. He was given a Venofer injection d/t iron deficiency anemia. He was set up with a new PCP as he previous PCP had retired. 04/19/19 Pt sitting up in recliner chair, with legs dangling. He reports that his legs feel alot better when they are dangling. Was started on Pramipexole 2 days ago and reports that he did sleep better last night but was awakened by nursing staff for vital signs checks which affected sleep. He reports that his bowels are moving and pain is well controlled. C/o numbness in his thumbs but it improved with exercises. 05/02/19: Evaluation of patient prior to discharge; the patient is noted to have good prognosis from PT/OT. His functionality has improved but he still requires assistance with ADLs. The patient also recently had cellulitis of bilateral lower extremities which has since improved with oral antibiotics and topical wound care. The patient has home care with instructions for continuous wound care and offloading to prevent recurrence of infection and wound development. Abnormal Labs: Abnormal Lab Results 04/26/19 04/29/19 Range/Units 13:43 06:15 RBC 3.79 L (4.40-5.70) M/uL Hgb 11.1 L (14.0-18.0) gm/dl Hct 36.4 L (42.0-52.0) % MCHC 30.5 L (32-36) g/dl RDW 16.2 H (11.5-14.5) % Plt Count 405 H (130-400) K/uL Lymphocytes % 15.4 L (16-45) % Monocytes % 9.1 H (0-9) % Urine Blood Large H (NEGATIVE) Condition at Discharge: (1) Good Discharge Medications - Discharge Medications Home Medications: Ambulatory Orders No Home Med [NO HOME MEDS] 04/15/19 [Last Taken Unknown] Discharge Plan - Discharge Instructions Wound Primary Dressing Type: Gauze Roll/Wrap Instructions: Urinary Tract Infection in Men (DC) Additional Instructions: Wound Care instructions: -Right leg: Clean gently with normal saline or safclens, apply silvadene to affected area, apply gold herr lotion or aquaphor to reddened areas, cover with telfa, cover with kerlix, secure with tape. -Left Leg: Apply aquaphor or gold herr to left leg reddened areas. -Keep heels bridged so they do not touch surface of recliner or bed. Aquacel foam to both heels to prevent further skin breakdown. Appointments have been set up for you as follows: -Dr. Cortez, Urology at [facility] 05/06/19 at 1:00pm, arrive at 12:45. Please bring new patient paperwork. [facility] can be reached at [phone]. -Dr. Ruiz with [facility] on 05/09/19 at home to establish primary care. . [employer] will contact you to start delivering meals during the week. They can be reached at [phone]. [facility] will contact you at home on Thursday 05/03 to start visiting nursing and therapy services. [facility] can be reached at [phone]. Quality Measures - Quality Measures Quality Measures: Advance Directives, Documentation of Current Medications in Medical Record, Elder Maltreatment Screen and Follow-Up Plan, Screening for High Blood Pressure and F/U Documented - Current Medications Quality Measure: Measure #130: Documentation of Current Medications Documentation of Current Medications: <Current Medications Documented/Reviewed> [G8427] - Blood Pressure Screening Quality Measure: Screening for High Blood Pressure and Follow-Up Documented Does Patient Have Any of the Following: Active Dx of HTN Blood Pressure Classification: Hypertensive Reading Systolic Measurement: 147 Diastolic Measurement: 79 Screening for High Blood Pressure: Patient Exclusion, Hx of HTN [G9744] - Advance Directives Quality Measure: Measure #47: Care Plan Advance Directives Established: No Advance Directives Information Provided To Patient: Declined Advance Directives on File: No Living Will: No Power of Mutuel Cashier: No Advance Care Planning: <Care Plan/Decision Maker Documented; Discussed & Documented> [[id number]] - Elder Abuse Suspicion Index Screening: Elder Abuse Suspicion Index Screening Rely on people for bathing, dressing, shopping, banking, etc: Yes Prevented from getting food, clothes, medication, etc: No Made to feel shamed or threatened by someone: No Forced to sign papers or use money against will: No Feel afraid, touched in ways not wanted or hurt physically: No Poor eye contact, withdrawn, malnourished, cuts or bruises: Yes Screening Result: Positive result, One YES response in questions 2-6. EASI Reference Information: Erasmo MORFIN, Etelvina C, Pia D, Filipe Callejas.Development and validation of a tool to assist physicians identification of elder abuse: The Elder Abuse Suspicion Index (EASI ). Journal of Elder Abuse and Neglect, 2008; 20 (3): 276-300. - Elder Maltreatment Screen Quality Measures: Elder Maltreatment Screen and Follow-Up Plan Elder Maltreatment Screen: <Negative, No Follow-Up Plan Required> [G8734]
== END 2019-05-02 15:39 | disposition home health service (06) | DRG 948 ==
LOC: MEDSURG 04-18 14:27
PROVIDERS: ADMIT Internal Medicine; ATTEND Internal Medicine
DX: R53.81 Other malaise (principal); N39.0 Urinary tract infection, site not specified; L97.909 Non-pressure chronic ulcer of unspecified part of unspecified lower leg with unspecified severity; R39.11 Hesitancy of micturition; I25.2 Old myocardial infarction; Z95.5 Presence of coronary angioplasty implant and graft; I10 Essential (primary) hypertension; D50.9 Iron deficiency anemia, unspecified; G25.81 Restless legs syndrome; Z66 Do not resuscitate
CPT/HCPCS: 80048; 81001; 85025; 97110; 97530; 99306; 99309; 99316; J1650